=== PATIENT | female | born 1940 | race Caucasian/White ===

== ENCOUNTER 2020-09-13 08:57 | Outpatient (REF) | payer MEDICARE, SELFPAY ==
--- NOTE | 2020-09-13 11:14 | MHC.AU.ANO ---
Adult Audiological Evaluation Date of Visit: 09/13/20 Vocational Rehabilitation Technician Used: Not Applicable Reason for Appointment: Audiologic evaluation due to decreased hearing ability, right ear greater than left. Although Kamini has a history of accumulating cerumen, over the past 6 months or so, the trouble hearing, particularly in the right ear has increased Does patient feel they have a hearing loss?: Yes If Yes, Which Ear?: Right Ear Has hearing been tested previously?: No Hearing Handicap Inventory: HHIE SCORE: 4 Based on HHIE score, patient has: No perceived hearing handicap Ear History: History of Ear Wax Buildup: Both Ears Ear used on the phone: Right Ear History of occupational noise exposure?: No History: History: No Medical History: Medical History: Headache, Measles, Migraines, Scarlet Fever, Tobacco Use Medication List: Omeprazole Otoscopy: Right Ear: Clear following cerumen removal prior to testing today Left Ear: Clear following cerumen removal prior to testing today Tympanometry: Tympanometry performed due to: To assess integrity of the middle ear system Right Ear: Normal Middle Ear System (Type A) Left Ear: Normal Middle Ear System (Type A) Otoacoustic Emissions Right Ear Results: Not performed at today's visit. Left Ear Results: Not performed at today's visit. Hearing Evaluation: Transducer(s) Used: Insert Earphones Bone Conduction Method: Conventional Audiometry Stimuli Used: Pure Tones Right Ear: Description of Hearing: Normal hearing thresholds at 250-1000 Hz dropping to a moderately-severe high frequency sensorineural hearing loss Left Ear: Description of Hearing: Normal hearing thresholds at 250-1000 Hz dropping to a moderately high frequency sensorineural hearing loss Speech Recognition Threshold (SRT): Method Used: Monitored Live Voice Stimuli Used: Spondee Words Right Ear: 30 dB HL Left Ear: 15 dB HL Word Discrimination: Method: Recorded Lists Word Lists Used: NU-6 Right Ear: 72% at 70 dB HL Left Ear: 92% at 60 dB HL Interpretation of Results: Kamini reported following cerumen removal today she was hearing better; however, the right ear continued to feel blocked/full. The asymmetric sensorineural hearing loss is likely to contribute to the blocked ear sensation. This hearing loss will also cause speech to sound more muffled with decreased speech understanding, left ear more than left. Due to the asymmetric sensorineural hearing loss, advise medical consultation and further investigation of the loss with an Production Support Manager. Recommendations: Referral to Ear, Nose, and Throat is recommended due to the asymmetric hearing loss. Trial with amplification is recommended. Patient does not feel they are ready for amplification at this time. Audiological re-evaluation in one year. Will send a reminder card Diagnosis: Primary Diagnosis: H90.3 Bilateral Sensorineural Hearing Loss Services Performed: Comprehensive Audiological Evaluation (CPT 66826) Tympanometry (CPT 53037) Signature: Provider: Benji Ceja, CCC-A
== END 2020-09-13 08:58 | disposition home or self-care (01) ==
LOC: HO.SH 08:57
PROVIDERS: Visit Provider Internal Medicine
DX: H91.90 Unspecified hearing loss, unspecified ear (principal)
CPT/HCPCS: 92557; 92567

== ENCOUNTER 2020-09-13 09:36 | Outpatient (REF) | payer SELFPAY | END 2020-09-13 09:37 | disposition home or self-care (01) | LOC: HO.HAP 09:36 | PROVIDERS: Visit Provider Internal Medicine | DX: H61.23 Impacted cerumen, bilateral (principal) | CPT/HCPCS: 92700 ==

== ENCOUNTER 2021-09-22 11:11 | Outpatient (REF) | payer MEDICARE, SELFPAY ==
[2021-09-22 11:22] LABS: MANUAL DIFF FLAG NO
[2021-09-22 12:19] LABS: Basophils Absolute Auto 0.1 X10*3/uL (0.0-0.2); Basophils Percent Auto 0.8 % (0-2); Eosinophils Absolute Auto 0.1 X10*3/uL (0.0-0.4); Eosinophils Percent Auto 1.5 % (0-4); Hematocrit 44.7 % (37.0-47.0); Hemoglobin 15.3 g/dl (12.0-16.0); Imm Gran Abs Auto 0.02 X10*3/uL (0.00-0.03); Imm Gran Pct Auto 0.2 % (0.0-0.4); Lymphocytes Absolute Auto 1.6 X10*3/uL (1.2-4.9); Lymphocytes Percent Auto 18.1 % (20-40); Mean Corpuscular HGB Conc 34.2 g/dl (31.0-35.0); Mean Corpuscular Hemoglobin 32.8 pg (27.0-33.0); Mean Corpuscular Volume 95.7 fL (80.0-98.0); Monocytes Absolute Auto 0.7 X10*3/uL (0.1-1.2); Monocytes Percent Auto 8.4 % (2-11); Neutrophils Absolute Auto 6.1 x10*3/uL (2.0-8.3); Platelet Count 267 X10*3/uL (160-400); Red Blood Count 4.67 X10*6/uL (4.20-5.50); Red Cell Distribution Width 12.3 % (11.0-16.0); White Blood Count 8.6 X10*3/uL (4.8-10.8)
[2021-09-22 13:17] LABS: Alanine Aminotransferase 16 U/L (0-31); Albumin Level 4.3 g/dL (3.5-5.0); Alkaline Phosphatase 80 U/L (39-117); Anion Gap 13 (12-20); Aspartate Amino Transferase 19 U/L (5-31); Bilirubin Total 0.9 mg/dL (0.0-1.0); Blood Urea Nitrogen 9 mg/dL (9-16); Calcium 9.6 mg/dL (8.4-10.2); Carbon Dioxide 29 mmol/L (22-29); Chloride 104 mmol/L (96-108); Cholesterol 230 mg/dL; Estimated Glomerular Filt Rate > 60; Glucose Fasting 103 mg/dL (60-99); HDL Cholesterol 63 mg/dL; LDL Cholesterol Calculated 146 mg/dl; Potassium 4.6 mmol/L (3.3-5.1); Sodium 141 mmol/L (135-145); Total Protein 7.3 g/dL (6.5-8.0); Triglycerides 108 mg/dL
== END 2021-09-22 11:12 | disposition home or self-care (01) ==
LOC: HO.LAB 11:11
PROVIDERS: PCP Internal Medicine; Visit Provider Internal Medicine
DX: Z00.00 Encounter for general adult medical examination without abnormal findings (principal); Z13.0 Encounter for screening for diseases of the blood and blood-forming organs and certain disorders involving the immune mechanism; E78.5 Hyperlipidemia, unspecified
CPT/HCPCS: 36415; 80053; 80061; 84443; 85025

== ENCOUNTER 2021-11-15 10:19 | Outpatient (REF) | payer MEDICARE, SELFPAY ==
--- NOTE | 2021-11-16 11:32 | MHC.AU.ANR ---
Adult Audiological Evaluation Date of Visit: 11/15/21 Reason for Appointment: Patient arrives to determine if there has been a change in hearing. At her initial visit on 09/13/2020, she was found to have asymmetrical hearing loss (right ear worse). Her right ear presented with normal sloping to moderately-severe sensorineural hearing loss, and her left ear presented with normal to moderate sensorineural hearing loss. Patient did not feel amplification was needed at that time. Referral to otolaryngology was recommended to address the asymmetry. Patient reports that she has not seen otolaryngology since the last appointment. She does not feel there have been any significant changes in hearing since her last visit. Ear History: Recent Ear Pain: None Reported Recent Ear Infections: None Reported History of Ear Wax Buildup: Both Ears History of occupational noise exposure?: No Medical History: Medical History: Headache, Measles, Migraines, Scarlet Fever, Tobacco Use Otoscopy: Right Ear: Partially occluded with cerumen. Tympanic membrane still visible. Left Ear: Partially occluded with cerumen. Tympanic membrane still visible. Tympanometry: Tympanometry performed due to: To assess integrity of the middle ear system Right Ear: Normal Middle Ear System (Type A) Left Ear: Normal Middle Ear System (Type A) Hearing Evaluation: Transducer(s) Used: Circumaural Headphones Method: Conventional Audiometry Stimuli Used: Pure Tones Right Ear: Description of Hearing: Normal from 250-1000 Hz, sloping to moderately-severe sensorineural hearing loss Left Ear: Description of Hearing: Normal from 250-1000 Hz, sloping to moderately-severe sensorineural hearing loss Speech Recognition Threshold (SRT): Method Used: Recorded Lists Stimuli Used: Spondee Words Right Ear: 20 dBHL Left Ear: 20 dBHL Word Discrimination: Method: Recorded Lists Word Lists Used: W-22 Right Ear: 96% at 60 dBHL Left Ear: 96% at 60 dBHL Most Comfortable Level (MCL): Right Ear: 60 dBHL Left Ear: 60 dBHL Comparison: Compared to the most recent evaluation: High frequency thresholds in the right ear slightly improved, while thresholds in the left ear slightly decreased. There is still asymmetry, but the gap is not as large was it was previously. Recommendations: Audiological re-evaluation in one year. Patient does not feel hearing aids are needed at this time. A referral to Ear, Nose, and Throat may still be warranted to address the asymmetry. Use of wax softening drops, such as EarWaxMD or Debrox, may help manage cerumen build-up. Diagnosis: Primary Diagnosis: H90.3 Bilateral Sensorineural Hearing Loss Signature: Provider: Benji Buck, CCC-A
== END 2021-11-15 10:20 | disposition home or self-care (01) ==
LOC: HO.SH 10:19
PROVIDERS: Visit Provider Internal Medicine
DX: Z01.118 Encounter for examination of ears and hearing with other abnormal findings (principal); H90.3 Sensorineural hearing loss, bilateral
CPT/HCPCS: 92557; 92567

== ENCOUNTER 2022-07-02 09:34 | Outpatient (REF) | payer MEDICARE, SELFPAY ==
--- NOTE | ~2022-07-02 | XR_ITS ---
EXAMINATION: XR SHOULDER, LEFT CLINICAL INFORMATION: Pain COMPARISON: None available. TECHNIQUE: AP external rotation, Grashey, scapular Y, and axillary views of the left shoulder. FINDINGS: There is loss of glenohumeral and AC joint space with inferior spurring glenohumeral joint. No visible loose bodies are bony erosive changes seen. No fracture or dislocation. There is soft tissue calcification lateral to the rotator cuff likely calcific bursitis. XR/XR shoulder LT min 2V IMPRESSION: 1. 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 2. Soft tissue calcification lateral to the rotator cuff likely calcific bursitis.
== END 2022-07-02 09:35 | disposition home or self-care (01) ==
LOC: HO.XRAY 09:34
PROVIDERS: PCP Internal Medicine; Visit Provider Internal Medicine
DX: M25.512 Pain in left shoulder (principal)
CPT/HCPCS: 73030

== ENCOUNTER 2022-11-15 09:20 | Outpatient (AMB) | payer MEDICARE, SELFPAY ==
[2022-11-15 09:27] VITALS: BP 108/70; PULSE 85; O2SAT 98; BMI 22.0
--- NOTE | 2022-11-15 09:27 | MHC.PC.OV ---
Vital Signs 11/15/22 09:27 Height 5 ft 1.5 in Weight 118 lb 2 oz BMI 22.0 BP 108/70 Blood Pressure Location Lt brachial Position Sitting Pulse 85 Pulse Source Pulse Oximeter Pulse Oximetry (%) 98 Oxygen Delivery Method Room Air Intake Visit Reasons: 6mth f/u Tester Waste Disposal Leakage Required: No Accompanied by: Self / Same As Patient Allergies No Known Allergies [No Known Allergies*] Allergy (Verified 11/15/22 09:28) Medication List - Last Reconciled 11/15/22 by Michele Wright MD cetirizine (24Hour Allergy) 10 mg PO DAILY PRN naproxen (Naprosyn) 500 mg PO BID PRN omeprazole 20 mg PO DAILY Tobacco use date assessed: 11/15/22 Fall risk assessment: No Falls in past year Last assessed Fall Risk: 11/15/22 Dental Screening Dental Screen Date: 11/15/22 Did you have a dental visit in the last 12 months?: Yes Did you have a dental problem in the last 6 months where you did not have access to dental care?: No Was dental information given to patient?: Patient has dentist HPI 6mth f/u HPI Details gerd on rx; doing well [facility] Medical History (Updated 09/14/21 @ 10:43 by Michele Wright MD) Chronic GERD Surgical History History of appendectomy Family History Father No problems noted. Mother No problems noted. Social History Housing: House Alcohol intake: current Alcohol intake frequency: a few times a week Patient Tobacco Use Status: Former Tobacco user Tobacco use type: Cigarette e-Cigarette/Vaping Use: Never Used Second Hand Smoke Exposure: No service: No Current occupational status: retired Cognitive needs: No Hearing needs: No Vision needs: No Questionnaire PHQ-9 Over the last 2 weeks, how often have you been bothered by any of the following problems? 1. Little interest or pleasure in doing things: not at all 2. Feeling down, depressed, or hopeless: not at all 3. Trouble falling or staying asleep, or sleeping too much: not at all 4. Feeling tired or having little energy: not at all 5. Poor appetite or overeating: not at all 6. Feeling bad about yourself - or that you are a failure or have let yourself or your family down: not at all 7. Trouble concentrating on things, such as reading the newspaper or watching television: not at all 8. Moving or speaking so slowly that other people could have noticed. Or the opposite - being so fidgety or restless that you have been moving around a lot more than usual: not at all 9. Thoughts that you would be better off or of hurting yourself in some way: not at all Total score: 0 Depression Screening Interpretation: Negative Source: Developed by Drs. Bandar Banks, Mary Grace Cervantes, Gene Oakley and colleagues, with an educational italo from [employer]. Thrive Questionnaire Date Thrive assessed: 11/15/22 I am a: Patient What is your living situation today?: I have a steady place to live Within the past 12 months, did the food you bought not last and you didn't have the money to get more?: Never true Within the past 12 months, did you worry whether your food would run out before you got money to buy more?: Never true Do you have trouble paying for medicines?: No Do you have trouble getting transportation to medical appointments?: No Do you have trouble paying your heating and electricity bill?: No Do you have trouble taking care of your child, family member or friend?: No Do you have trouble with day-to-day activities such as bathing, preparing meals, shopping, managing finances, etc.?: No Are you currently unemployed and looking for a job?: No Are you interested in more education?: No Please select the resources that you would like help with: None Currently or been in a relationship where the following occur: no concerns reported AUDIT C Alcohol Use Questionnaire (AUDIT-C) 1. How often do you have a drink containing alcohol?: 4 or more times a week 2. How many drinks containing alcohol do you have on a typical day when you are drinking?: 1 or 2 3. How often do you have six or more drinks on one occasion?: Never Total Score: 4 Score Reviewed/Action Taken: Yes JUSTUS-7 AMB Questionnaire JUSTUS-7 Date JUSTUS - 7 assessed: 11/15/22 Feeling nervous, anxious, or on edge: 0 = Not at all Not being able to stop or control worryin = Not at all Worrying too much about different things: 0 = Not at all Trouble relaxin = Not at all Being so restless that it is hard to sit still: 0 = Not at all Becoming easily annoyed or irritable: 0 = Not at all Feeling afraid as if something awful might happen: 0 = Not at all Total JUSTUS-7 score (0-4 normal; 5-9 mild; 10-14 moderate; 15-21 severe): 0 Source: Developed by Drs. Bandar Banks, Mary Grace Cervantes, Gene Oakley and colleagues, with an educational italo from [employer]. Review of Systems Const Denies chills, Denies headache(s) and Denies weight loss ENT Denies headache(s) Card Denies chest pain, Denies syncope, Denies irregular heart rhythm and Denies dyspnea Resp Denies chest congestion, Denies cough and Denies dyspnea GI Denies abdominal pain, Denies change in stool character, Denies nausea and Denies vomiting Musc Denies deformity and Denies joint swelling Neuro Denies syncope and Denies headache(s) Physical exam (Primary Care) Vital Signs: Last Vital Signs Pulse 85 11/15/22 09:27 BP 108/70 11/15/22 09:27 Pulse Ox 98 11/15/22 09:27 Oxygen Delivery Method Room Air 11/15/22 09:27 BMI result Body Mass Index 22.0 Tobacco/Smoking Status: Tobacco use Status Tobacco use date assessed 11/15/22 11/15/22 09:29 Patient Tobacco Use Status Former Tobacco user 11/15/22 09:29 Tobacco use type Cigarette 11/15/22 09:29 e-Cigarette/Vaping Use Never Used 11/15/22 09:29 PHQ-9: PHQ-9 Score PHQ-9: Total score 0 11/15/22 09:29 Depression Screening Interpretation: Negative Thrive Assessment: Date of Thrive Assessment Date Thrive assessed 11/15/22 11/15/22 09:29 Currently or been in a relationship where the following occur: no concerns reported Const General: cooperative, comfortable and no acute distress Resp Effort & Inspection: normal respiratory effort Auscultation: clear to auscultation bilaterally Percussion: percussion normal Cardio Jugular venous distension: no JVD Rate: regular rate Rhythm: regular rhythm GI Inspection: Yes normal to inspection Assessment and Plan Assessment & Plan (1) Chronic GERD: Code(s): K21.9 - Gastro-esophageal reflux disease without esophagitis Plan: stable; same rx Coding Level of Care Code Est Pt Level 3 (52166) Diagnoses Chronic GERD K21.9
== END 2022-11-15 09:55 | disposition home or self-care (01) ==
PROVIDERS: Visit Provider Internal Medicine
DX: K21.9 Gastro-esophageal reflux disease without esophagitis (principal)
CPT/HCPCS: 99213

== ENCOUNTER 2023-02-01 09:20 | Outpatient (AMB) | payer MEDICARE, SELFPAY ==
[2023-02-01 09:21] VITALS: BP 116/72; PULSE 87; O2SAT 98; BMI 22.3
--- NOTE | 2023-02-01 09:21 | A.OFFPC_ITS ---
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 Cab Required: No Cage Maker Machine: Present Allergies No Known Allergies [No Known Allergies*] Allergy (Verified 02/01/23 09:21) Medication List - Last Reconciled 02/01/23 by Michele Wright MD cetirizine (24Hour Allergy) 10 mg PO DAILY PRN naproxen (Naprosyn) 500 mg PO BID PRN omeprazole 20 mg PO DAILY Tobacco use date assessed: 11/15/22 Fall risk assessment: No Falls in past year Last assessed Fall Risk: 02/01/23 Dental Screening Dental Screen Date: 02/01/23 Did you have a dental visit in the last 12 months?: Yes Did you have a dental problem in the last 6 months where you did not have access to dental care?: No Was dental information given to patient?: Patient has dentist HPI Discuss Memory HPI Details notices a decline in memory the past year [facility] Medical History Chronic GERD Surgical History History of appendectomy Family History Father No problems noted. Mother No problems noted. Social History Housing: House Alcohol intake: current Alcohol intake frequency: a few times a week Patient Tobacco Use Status: Former Tobacco user Tobacco use type: Cigarette e-Cigarette/Vaping Use: Never Used Second Hand Smoke Exposure: No service: No Current occupational status: retired Cognitive needs: No Hearing needs: No Vision needs: Yes Questionnaire PHQ-9 Over the last 2 weeks, how often have you been bothered by any of the following problems? 1. Little interest or pleasure in doing things: not at all 2. Feeling down, depressed, or hopeless: not at all 3. Trouble falling or staying asleep, or sleeping too much: not at all 4. Feeling tired or having little energy: not at all 5. Poor appetite or overeating: not at all 6. Feeling bad about yourself - or that you are a failure or have let yourself or your family down: not at all 7. Trouble concentrating on things, such as reading the newspaper or watching television: not at all 8. Moving or speaking so slowly that other people could have noticed. Or the opposite - being so fidgety or restless that you have been moving around a lot more than usual: not at all 9. Thoughts that you would be better off or of hurting yourself in some way: not at all Total score: 0 Depression Screening Interpretation: Negative Depression Screening Done: Yes Source: Developed by Drs. Bandar Banks, Gene Sherman and colleagues, with an educational italo from [facility]. Thrive Questionnaire Date Thrive assessed: 11/15/22 AUDIT C Alcohol Use Questionnaire (AUDIT-C) 1. How often do you have a drink containing alcohol?: 4 or more times a week 2. How many drinks containing alcohol do you have on a typical day when you are drinking?: 1 or 2 3. How often do you have six or more drinks on one occasion?: Never Total Score: 4 Score Reviewed/Action Taken: Yes JUSTUS-7 AMB Questionnaire JUSTUS-7 Date JUSTUS - 7 assessed: 11/15/22 Source: Developed by Drs. Bandar Banks, Gene Sherman and colleagues, with an educational italo from [facility]. Review of Systems Const Denies chills, Denies headache(s) and Denies weight loss ENT Denies headache(s) Card Denies chest pain, Denies syncope, Denies irregular heart rhythm and Denies dys pnea Resp Denies chest congestion, Denies cough and Denies dyspnea GI Denies abdominal pain, Denies change in stool character, Denies nausea and Denie s vomiting Musc Denies deformity and Denies joint swelling Neuro Denies syncope and Denies headache(s) Physical exam (Primary Care) Vital Signs: Last Vital Signs Pulse 87 02/01/23 09:21 BP 116/72 02/01/23 09:21 Pulse Ox 98 02/01/23 09:21 Oxygen Delivery Method Room Air 02/01/23 09:21 BMI result Body Mass Index 22.3 Tobacco/Smoking Status: Tobacco use Status Tobacco use date assessed 11/15/22 02/01/23 09:26 Patient Tobacco Use Status Former Tobacco user 02/01/23 09:26 Tobacco use type Cigarette 02/01/23 09:26 e-Cigarette/Vaping Use Never Used 02/01/23 09:26 PHQ-9: PHQ-9 Score PHQ-9: Total score 0 02/01/23 09:38 Depression Screening Interpretation: Negative Thrive Assessment: Date of Thrive Assessment Date Thrive assessed 11/15/22 02/01/23 09:26 Const General: cooperative, comfortable, no acute distress and alert Neck Neck: Yes no lymphadenopathy Thyroid: Thyroid normal Resp Effort & Inspection: normal respiratory effort Auscultation: clear to auscultation bilaterally Percussion: percussion normal Cardio Jugular venous distension: no JVD Palpation: normal PMI Rate: regular rate Rhythm: regular rhythm Heart sounds: S1 normal heart sound present and S2 normal heart sound present GI Inspection: Yes normal to inspection Palpation (GI): No hepatosplenomegaly present Skin General skin exam: no rashes or lesions noted Extrem General: Yes no clubbing, cyanosis or edema Assessment and Plan Assessment & Plan (1) Cognitive decline: Code(s): R41.89 - Other symptoms and signs involving cognitive functions and awareness Plan: labs and ct ordered Orders: Orders Vitamin B12 Today R41.89 - Other symptoms and signs involving cognitive functions and awareness Erythrocyte Sedimentation Rate Today R41.89 - Other symptoms and signs involving cognitive functions and awareness CT head/brain wo IV con Today R41.89 - Other symptoms and signs involving cognitive functions and awareness Complete Blood Count Auto Diff Today D64.9 - Anemia, unspecified Basic Metabolic Panel Today R41.89 - Other symptoms and signs involving cognitive functions and awareness Coding Level of Care Code Est Pt Level 3 (67653) Diagnoses Cognitive decline R41.89
== END 2023-02-01 09:40 | disposition home or self-care (01) ==
PROVIDERS: PCP Internal Medicine; Visit Provider Internal Medicine
DX: R41.89 Other symptoms and signs involving cognitive functions and awareness (principal)
CPT/HCPCS: 99213

== ENCOUNTER 2023-02-01 09:49 | Outpatient (REF) | payer MEDICARE, SELFPAY ==
[2023-02-01 10:01] LABS: MANUAL DIFF FLAG NO
[2023-02-01 10:56] LABS: Basophils Absolute Auto 0.1 X10*3/uL (0.0-0.2); Basophils Percent Auto 1.1 % (0-2); Eosinophils Absolute Auto 0.2 X10*3/uL (0.0-0.4); Eosinophils Percent Auto 3.2 % (0-4); Hematocrit 42.5 % (37.0-47.0); Hemoglobin 14.6 g/dl (12.0-16.0); Imm Gran Abs Auto 0.02 X10*3/uL (0.00-0.03); Imm Gran Pct Auto 0.3 % (0.0-0.4); Lymphocytes Absolute Auto 1.7 X10*3/uL (1.2-4.9); Lymphocytes Percent Auto 23.6 % (20-40); Mean Corpuscular HGB Conc 34.4 g/dl (31.0-35.0); Mean Corpuscular Hemoglobin 31.9 pg (27.0-33.0); Mean Platelet Volume 10.6 fL (9.4-12.3); Monocytes Absolute Auto 0.7 X10*3/uL (0.1-1.2); Monocytes Percent Auto 9.1 % (2-11); Neutrophils Absolute Auto 4.5 x10*3/uL (2.0-8.3); Neutrophils Percent Auto 62.7 % (45-73); Platelet Count 283 X10*3/uL (160-400); Red Blood Count 4.57 X10*6/uL (4.20-5.50); Red Cell Distribution Width 12.1 % (11.0-16.0); White Blood Count 7.2 X10*3/uL (4.8-10.8)
[2023-02-01 11:37] LABS: Erythrocyte Sedimentation Rate 7 MM/HR (0-20)
[2023-02-01 11:39] LABS: Anion Gap 15 (12-20); Blood Urea Nitrogen 10 mg/dL (9-16); Calcium 9.6 mg/dL (8.4-10.2); Carbon Dioxide 25 mmol/L (22-29); Chloride 105 mmol/L (96-108); Estimated Glomerular Filt Rate > 60; Glucose Random 101 mg/dL (60-115); Potassium 4.1 mmol/L (3.3-5.1); Sodium 141 mmol/L (135-145)
[2023-02-01 11:59] LABS: Vitamin B12 395 pg/mL (200-900)
== END 2023-02-01 09:50 | disposition home or self-care (01) ==
LOC: HO.LAB 09:49
PROVIDERS: PCP Internal Medicine; Visit Provider Internal Medicine
DX: R41.89 Other symptoms and signs involving cognitive functions and awareness (principal); D64.9 Anemia, unspecified
CPT/HCPCS: 36415; 80048; 82607; 85025; 85652

== ENCOUNTER 2023-02-12 07:46 | Outpatient (REF) | payer MEDICARE, SELFPAY ==
--- NOTE | ~2023-02-12 | CT_ITS ---
EXAMINATION: CT HEAD WITHOUT CONTRAST CLINICAL INFORMATION: 82-year-old with other signs and symptoms involving cognitive functions and awareness. COMPARISON: None available. TECHNIQUE: Contiguous axial imaging was performed from the skull base to vertex without intravenous administration of contrast. This CT examination was performed using dose optimization techniques as appropriate, variously including the following: *Automated exposure control *Adjustment of mA and/or kV according to patient size (this includes techniques or standardized protocols for targeted exams where dose is matched to indication/reason for exam; i.e. extremities or head) *Use of iterative reconstruction technique DLP: 657 mGy-cm FINDINGS: Brain Volume: Moderate diffuse generalized brain parenchymal volume loss is noted. There is prominence of the cerebrospinal fluid spaces overlying the cervical convexities bilaterally as well likely reflecting relatively increased intracranial volume for the patient's age. Structural: No malformations. Brain and Meninges: Scattered patchy zones of hypodensity are noted within the subcortical white matter of both cerebral hemispheres which are nonspecific but likely reflect chronic ischemic microangiopathy in a patient of this age. Small zones of hypodensity are seen in the john which are nonspecific but could reflect chronic ischemic microangiopathy. Cannot exclude small age-indeterminate infarcts. 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 No intercranial hemorrhage, extra-axial fluid collection acute territorial infarct, space-occupying process or mass effect. Ganglionic structures appear grossly intact. Mural calcifications of both carotid siphons are noted with minimal calcified plaque of the V4 segments of both vertebral arteries. Ventricles and Subarachnoid Spaces: The ventricular system and subarachnoid spaces are approximately proportional to the degree of parenchymal volume loss, without hydrocephalus. Orbital Structures: Bilateral lens replacements are noted. Otherwise, grossly unremarkable within the limitations of the study. Osseous Structures, Sinuses/Mastoids, Extracranial Soft Tissues: The bony structures are intact. The mastoids and middle ear cavities are unopacified. There is minor mucosal thickening in the ethmoid complex and right maxillary sinus. Nasal septal deviation to the right. Visualized extracranial soft tissue structures are unremarkable. CT/CT head/brain wo IV con IMPRESSION: 1. No acute territorial infarct. No evidence for mass effect, hemorrhage, extra-axial fluid collection, space-occupying process or mass effect. 2. 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 Cannot exclude small age-indeterminate infarcts in the john. 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 3. Moderate generalized brain parenchymal volume loss with prominence of the cerebrospinal fluid spaces overlying the cervical convexities bilaterally. 4. Minor mucosal thickening in the ethmoid complex and right maxillary sinus.
== END 2023-02-12 07:47 | disposition home or self-care (01) ==
LOC: HO.CT 07:46
PROVIDERS: PCP Internal Medicine; Visit Provider Internal Medicine
DX: R41.89 Other symptoms and signs involving cognitive functions and awareness (principal)
CPT/HCPCS: 70450

== ENCOUNTER 2023-02-22 09:28 | Outpatient (AMB) | payer MEDICARE, SELFPAY ==
[2023-02-22 09:31] VITALS: BP 118/70; PULSE 80; O2SAT 97; BMI 22.3
--- NOTE | 2023-02-22 09:31 | MHC.PC.OV ---
Vital Signs 02/22/23 09:31 Height 5 ft 1.5 in Weight 120 lb BMI 22.3 BP 118/70 Blood Pressure Location Lt brachial Position Sitting Pulse 80 Pulse Source Pulse Oximeter Pulse Oximetry (%) 97 Oxygen Delivery Method Room Air Intake Visit Reasons: F/U CT & Lab Results First Breaker Feeder: Not Required per policy Accompanied by: Self / Same As Patient Allergies cat dander Allergy (Mild, Verified 02/22/23 09:34) Unknown Medication List - Last Reconciled 02/22/23 by Michele Wright MD cetirizine (24Hour Allergy) 10 mg PO DAILY PRN omeprazole 20 mg PO DAILY Tobacco use date assessed: 11/15/22 Fall risk assessment: No Falls in past year Last assessed Fall Risk: 02/22/23 Dental Screening Dental Screen Date: 02/22/23 Did you have a dental visit in the last 12 months?: Yes Did you have a dental problem in the last 6 months where you did not have access to dental care?: No Was dental information given to patient?: Patient has dentist HPI F/U CT & Lab Results HPI Details has mild cognitive decline; ct showed age related atrophy and labs fine; actually quite active physically and mentally doing puzzles, etc PFSH Medical History Chronic GERD Surgical History History of appendectomy Family History Father No problems noted. Mother No problems noted. Social History Housing: House Alcohol intake: current Alcohol intake frequency: a few times a week Patient Tobacco Use Status: Former Tobacco user Tobacco use type: Cigarette e-Cigarette/Vaping Use: Never Used Second Hand Smoke Exposure: No service: No Current occupational status: retired Cognitive needs: No Hearing needs: No Vision needs: Yes Questionnaire PHQ-9 Over the last 2 weeks, how often have you been bothered by any of the following problems? 1. Little interest or pleasure in doing things: not at all 2. Feeling down, depressed, or hopeless: not at all 3. Trouble falling or staying asleep, or sleeping too much: not at all 4. Feeling tired or having little energy: not at all 5. Poor appetite or overeating: not at all 6. Feeling bad about yourself - or that you are a failure or have let yourself or your family down: not at all 7. Trouble concentrating on things, such as reading the newspaper or watching television: not at all 8. Moving or speaking so slowly that other people could have noticed. Or the opposite - being so fidgety or restless that you have been moving around a lot more than usual: not at all 9. Thoughts that you would be better off or of hurting yourself in some way: not at all Total score: 0 Depression Screening Interpretation: Negative Depression Screening Done: Yes Source: Developed by Drs. Bandar Banks, Mary Grace Cervantes, Gene Oakley and colleagues, with an educational italo from [employer]. Thrive Questionnaire Date Thrive assessed: 11/15/22 AUDIT C Alcohol Use Questionnaire (AUDIT-C) 1. How often do you have a drink containing alcohol?: 4 or more times a week 2. How many drinks containing alcohol do you have on a typical day when you are drinking?: 1 or 2 3. How often do you have six or more drinks on one occasion?: Never Total Score: 4 Score Reviewed/Action Taken: Yes JUSTUS-7 AMB Questionnaire JUSTUS-7 Date JUSTUS - 7 assessed: 11/15/22 Source: Developed by Drs. Bandar Banks, Mary Grace Cervantes, Geen Oakley and colleagues, with an educational italo from [employer]. Review of Systems Const Denies chills, Denies headache(s) and Denies weight loss ENT Denies headache(s) Card Denies chest pain, Denies syncope, Denies irregular heart rhythm and Denies dyspnea Resp Denies chest congestion, Denies cough and Denies dyspnea GI Denies abdominal pain, Denies change in stool character, Denies nausea and Denies vomiting Musc Denies deformity and Denies joint swelling Neuro Denies syncope and Denies headache(s) Physical exam (Primary Care) Vital Signs: Last Vital Signs Pulse 80 02/22/23 09:31 BP 118/70 02/22/23 09:31 Pulse Ox 97 02/22/23 09:31 Oxygen Delivery Method Room Air 02/22/23 09:31 BMI result Body Mass Index 22.3 Tobacco/Smoking Status: Tobacco use Status Tobacco use date assessed 11/15/22 02/22/23 09:37 Patient Tobacco Use Status Former Tobacco user 02/22/23 09:37 Tobacco use type Cigarette 02/22/23 09:37 e-Cigarette/Vaping Use Never Used 02/22/23 09:37 PHQ-9: PHQ-9 Score PHQ-9: Total score 0 02/22/23 09:37 Depression Screening Interpretation: Negative Thrive Assessment: Date of Thrive Assessment Date Thrive assessed 11/15/22 02/22/23 09:37 Const General: cooperative, comfortable, no acute distress and alert Neck Neck: Yes no lymphadenopathy Thyroid: Thyroid normal Resp Effort & Inspection: normal respiratory effort Auscultation: clear to auscultation bilaterally Percussion: percussion normal Cardio Jugular venous distension: no JVD Palpation: normal PMI Rate: regular rate Rhythm: regular rhythm Heart sounds: S1 normal heart sound present and S2 normal heart sound present GI Inspection: Yes normal to inspection Palpation (GI): No hepatosplenomegaly present Skin General skin exam: no rashes or lesions noted Extrem General: Yes no clubbing, cyanosis or edema Assessment and Plan Assessment & Plan (1) Cognitive decline: Code(s): R41.89 - Other symptoms and signs involving cognitive functions and awareness Plan: mild; no further rx needed Coding Level of Care Code Est Pt Level 3 (55552) Diagnoses Cognitive decline R41.89
== END 2023-02-22 09:48 | disposition home or self-care (01) ==
PROVIDERS: PCP Internal Medicine; Visit Provider Internal Medicine
DX: R41.89 Other symptoms and signs involving cognitive functions and awareness (principal)
CPT/HCPCS: 99213

== ENCOUNTER 2023-05-20 08:18 | Outpatient (AMB) | payer MEDICARE, SELFPAY ==
--- NOTE | 2023-05-20 08:41 | MHC.PC.OV ---
Vital Signs 05/20/23 08:42 Height 5 ft 1.5 in Weight 121 lb BMI 22.5 BP 122/70 Blood Pressure Location Lt brachial Position Sitting Pulse 85 Pulse Source Pulse Oximeter Pulse Oximetry (%) 96 Oxygen Delivery Method Room Air Intake Visit Reasons: 6mth f/u Allergies cat dander Allergy (Mild, Verified 05/20/23 08:42) Unknown Tobacco use date assessed: 05/20/23 Fall risk assessment: No Falls in past year Last assessed Fall Risk: 05/20/23 Dental Screening Dental Screen Date: 05/20/23 Did you have a dental visit in the last 12 months?: Yes Did you have a dental problem in the last 6 months where you did not have access to dental care?: No Was dental information given to patient?: Patient has dentist HPI 6mth f/u HPI Details gerd on rx; doing well PFSH Medical History Chronic GERD Surgical History History of appendectomy Family History Father No problems noted. Mother No problems noted. Social History Housing: House Alcohol intake: current Alcohol intake frequency: a few times a week Patient Tobacco Use Status: Former Tobacco user Tobacco use type: Cigarette e-Cigarette/Vaping Use: Never Used Second Hand Smoke Exposure: No service: No Current occupational status: retired Cognitive needs: No Hearing needs: No Vision needs: Yes Questionnaire PHQ-9 Over the last 2 weeks, how often have you been bothered by any of the following problems? 1. Little interest or pleasure in doing things: not at all 2. Feeling down, depressed, or hopeless: not at all 3. Trouble falling or staying asleep, or sleeping too much: not at all 4. Feeling tired or having little energy: not at all 5. Poor appetite or overeating: not at all 6. Feeling bad about yourself - or that you are a failure or have let yourself or your family down: not at all 7. Trouble concentrating on things, such as reading the newspaper or watching television: not at all 8. Moving or speaking so slowly that other people could have noticed. Or the opposite - being so fidgety or restless that you have been moving around a lot more than usual: not at all 9. Thoughts that you would be better off or of hurting yourself in some way: not at all Total score: 0 Depression Screening Interpretation: Negative Depression Screening Done: Yes Source: Developed by Drs. Bandar Banks, Mary Grace Cervantes, Gene Oakley and colleagues, with an educational italo from [employer]. Thrive Questionnaire Date Thrive assessed: 05/20/23 I am a: Patient What is your living situation today?: I have a steady place to live Within the past 12 months, did the food you bought not last and you didn't have the money to get more?: Never true Within the past 12 months, did you worry whether your food would run out before you got money to buy more?: Never true Do you have trouble paying for medicines?: No Do you have trouble getting transportation to medical appointments?: No Do you have trouble paying your heating and electricity bill?: No Do you have trouble taking care of your child, family member or friend?: No Do you have trouble with day-to-day activities such as bathing, preparing meals, shopping, managing finances, etc.?: No Are you currently unemployed and looking for a job?: No Are you interested in more education?: No THRIVE Score: 0 AUDIT C Alcohol Use Questionnaire (AUDIT-C) 1. How often do you have a drink containing alcohol?: 4 or more times a week 2. How many drinks containing alcohol do you have on a typical day when you are drinking?: 1 or 2 3. How often do you have six or more drinks on one occasion?: Never Total Score: 4 Score Reviewed/Action Taken: Yes JUSTUS-7 AMB Questionnaire JUSTUS-7 Date JUSTUS - 7 assessed: 05/20/23 Feeling nervous, anxious, or on edge: 0 = Not at all Not being able to stop or control worryin = Not at all Worrying too much about different things: 0 = Not at all Trouble relaxin = Not at all Being so restless that it is hard to sit still: 0 = Not at all Becoming easily annoyed or irritable: 0 = Not at all Feeling afraid as if something awful might happen: 0 = Not at all Total JUSTUS-7 score (0-4 normal; 5-9 mild; 10-14 moderate; 15-21 severe): 0 Source: Developed by Drs. Bandar Banks, Mary Grace Cervantes, Gene Oakley and colleagues, with an educational italo from [employer]. Review of Systems Const Denies chills, Denies headache(s) and Denies weight loss ENT Denies headache(s) Card Denies chest pain, Denies syncope, Denies irregular heart rhythm and Denies dyspnea Resp Denies chest congestion, Denies cough and Denies dyspnea GI Denies abdominal pain, Denies change in stool character, Denies nausea and Denies vomiting Musc Denies deformity and Denies joint swelling Neuro Denies syncope and Denies headache(s) Physical exam (Primary Care) Vital Signs: Last Vital Signs Pulse 85 05/20/23 08:42 BP 122/70 05/20/23 08:42 Pulse Ox 96 05/20/23 08:42 Oxygen Delivery Method Room Air 05/20/23 08:42 BMI result Body Mass Index 22.5 Tobacco/Smoking Status: Tobacco use Status Tobacco use date assessed 05/20/23 05/20/23 08:46 Patient Tobacco Use Status Former Tobacco user 05/20/23 08:46 Tobacco use type Cigarette 05/20/23 08:46 e-Cigarette/Vaping Use Never Used 05/20/23 08:46 PHQ-9: PHQ-9 Score PHQ-9: Total score 0 05/20/23 08:46 Depression Screening Interpretation: Negative Thrive Assessment: Date of Thrive Assessment Date Thrive assessed 05/20/23 05/20/23 08:46 Const General: cooperative, comfortable, no acute distress and alert Neck Neck: Yes no lymphadenopathy Thyroid: Thyroid normal Resp Effort & Inspection: normal respiratory effort Auscultation: clear to auscultation bilaterally Percussion: percussion normal Cardio Jugular venous distension: no JVD Palpation: normal PMI Rate: regular rate Rhythm: regular rhythm Heart sounds: S1 normal heart sound present and S2 normal heart sound present GI Inspection: Yes normal to inspection Palpation (GI): No hepatosplenomegaly present Skin General skin exam: no rashes or lesions noted Extrem General: Yes no clubbing, cyanosis or edema Assessment and Plan Assessment & Plan (1) Chronic GERD: Code(s): K21.9 - Gastro-esophageal reflux disease without esophagitis Plan: stable; same rx Coding Level of Care Code Est Pt Level 3 (58685) Diagnoses Chronic GERD K21.9
[2023-05-20 08:42] VITALS: BP 122/70; PULSE 85; O2SAT 96; BMI 22.5
== END 2023-05-20 08:57 | disposition home or self-care (01) ==
PROVIDERS: PCP Internal Medicine; Visit Provider Internal Medicine
DX: K21.9 Gastro-esophageal reflux disease without esophagitis (principal)
CPT/HCPCS: 99213

== ENCOUNTER 2023-09-13 11:19 | Outpatient (REF) | payer SELFPAY ==
--- NOTE | 2023-09-13 12:40 | MHC.AU.CER ---
Cerumen Removal- Binaural Date of Visit: 09/13/23 Medical Conditions: Fullness in Ear(s); No Conditions of Concern for Cerumen Removal Medications: No Medications of Concern for Cerumen Removal Procedure: Right Ear: Unusual Findings: Deeply Impacted Cerumen Prior to Removal: Complete Occlusion Outcome of Procedure: Very little to no cerumen was able to be removed; Irritation/Redness Other: Slight abrasion on floor of ear canal Left Ear: Unusual Findings: Deeply Impacted Cerumen Prior to Removal: Complete Occlusion Outcome of Procedure: Very little to no cerumen was able to be removed. Recommendations: Follow-up with ENT for cerumen removal Recommendations (Other): Kamini reported her PCP office does not perform cerumen removal. Diagnosis Code(s): Primary Diagnosis: H61.23 Impacted Cerumen, Bilateral Signature: Provider: Michaela Calloway, [facility]
== END 2023-09-13 11:20 | disposition home or self-care (01) ==
LOC: HO.HAP 11:19
PROVIDERS: Visit Provider Internal Medicine
DX: Z13.89 Encounter for screening for other disorder (principal)

== ENCOUNTER 2023-11-01 11:33 | Outpatient (AMB) | payer MEDICARE, SELFPAY ==
[2023-11-01 11:40] VITALS: BP 110/70; PULSE 60; O2SAT 98; BMI 21.9
--- NOTE | 2023-11-01 11:40 | A.OFFPC_ITS ---
Vital Signs 11/01/23 11:40 Height 5 ft 1.5 in Weight 118 lb BMI 21.9 BP 110/70 Blood Pressure Location Lt brachial Position Sitting Pulse 60 Pulse Source Pulse Oximeter Pulse Oximetry (%) 98 Oxygen Delivery Method Room Air Intake Visit Reasons: muscle pain Allergies cat dander Allergy (Mild, Verified 05/20/23 08:42) Unknown Tobacco use date assessed: 05/20/23 Dental Screening Dental Screen Date: 05/20/23 HPI muscle pain HPI Details right hip pain for a week which has now resolved [facility] Medical History Chronic GERD Surgical History History of appendectomy Family History Father No problems noted. Mother No problems noted. Social History Housing: House Alcohol intake: current Alcohol intake frequency: a few times a week Patient Tobacco Use Status: Former Tobacco user Tobacco use type: Cigarette e-Cigarette/Vaping Use: Never Used Second Hand Smoke Exposure: No service: No Current occupational status: retired Cognitive needs: No Hearing needs: No Vision needs: Yes Questionnaire Thrive Questionnaire Date Thrive assessed: 05/20/23 JUSTUS-7 AMB Questionnaire JUSTUS-7 Date JUSTUS - 7 assessed: 05/20/23 Source: Developed by Drs. Bandar Banks, Mary Grace Cervantes, Gene Oakley and colleagues, with an educational italo from [employer]. Review of Systems Const Denies chills, Denies headache(s) and Denies weight loss ENT Denies headache(s) Card Denies chest pain, Denies syncope, Denies irregular heart rhythm and Denies dyspnea Resp Denies chest congestion, Denies cough and Denies dyspnea GI Denies abdominal pain, Denies change in stool character, Denies nausea and Denies vomiting Musc Denies deformity and Denies joint swelling Neuro Denies syncope and Denies headache(s) Physical exam (Primary Care) Vital Signs: Last Vital Signs Pulse 60 11/01/23 11:40 BP 110/70 11/01/23 11:40 Pulse Ox 98 11/01/23 11:40 Oxygen Delivery Method Room Air 11/01/23 11:40 BMI result Body Mass Index 21.9 Tobacco/Smoking Status: Tobacco use Status Tobacco use date assessed 05/20/23 11/01/23 11:42 Patient Tobacco Use Status Former Tobacco user 11/01/23 11:42 Tobacco use type Cigarette 11/01/23 11:42 e-Cigarette/Vaping Use Never Used 11/01/23 11:42 Thrive Assessment: Date of Thrive Assessment Date Thrive assessed 05/20/23 11/01/23 11:42 Const General: cooperative, comfortable, no acute distress and alert Neck Neck: Yes no lymphadenopathy Thyroid: Thyroid normal Resp Effort & Inspection: normal respiratory effort Auscultation: clear to auscultation bilaterally Percussion: percussion normal Cardio Jugular venous distension: no JVD Palpation: normal PMI Rate: regular rate Rhythm: regular rhythm Heart sounds: S1 normal heart sound present and S2 normal heart sound present GI Inspection: Yes normal to inspection Palpation (GI): No hepatosplenomegaly present Skin General skin exam: no rashes or lesions noted Extrem General: Yes no clubbing, cyanosis or edema Assessment and Plan Assessment & Plan (1) Hip pain: Code(s): M25.559 - Pain in unspecified hip Plan: resolved Coding Level of Care Code Est Pt Level 3 (82616) Diagnoses Hip pain M25.559
== END 2023-11-01 11:48 | disposition home or self-care (01) ==
PROVIDERS: PCP Internal Medicine; Visit Provider Internal Medicine
DX: M25.559 Pain in unspecified hip (principal)
CPT/HCPCS: 99213

== ENCOUNTER 2023-11-18 11:29 | Outpatient (AMB) | payer MEDICARE, SELFPAY ==
[2023-11-18 11:34] VITALS: BP 112/58; PULSE 86; O2SAT 96; BMI 22.3
--- NOTE | 2023-11-18 11:34 | MHC.PC.OV ---
Vital Signs 11/18/23 11:34 Height 5 ft 1 in Weight 118 lb BMI 22.3 BP 112/58 L Blood Pressure Location Lt brachial Position Sitting Pulse 86 Pulse Source Pulse Oximeter Pulse Oximetry (%) 96 Oxygen Delivery Method Room Air Intake Visit Reasons: 6mth f/u Allergies cat dander Allergy (Mild, Verified 11/18/23 11:34) Unknown Medication List - Last Reconciled 11/18/23 by Michele Wirght MD cetirizine (24Hour Allergy) 10 mg PO DAILY PRN omeprazole 20 mg PO DAILY Tobacco use date assessed: 05/20/23 Fall risk assessment: No Falls in past year Last assessed Fall Risk: 11/18/23 Dental Screening Dental Screen Date: 05/20/23 HPI 6mth f/u HPI Details allergic rhinitis on rx; doing well on meds; stable PFSH Medical History Chronic GERD Surgical History History of appendectomy Family History Father No problems noted. Mother No problems noted. Social History Housing: House Alcohol intake: current Alcohol intake frequency: a few times a week Patient Tobacco Use Status: Former Tobacco user Tobacco use type: Cigarette e-Cigarette/Vaping Use: Never Used Second Hand Smoke Exposure: No service: No Current occupational status: retired Cognitive needs: No Hearing needs: No Vision needs: Yes Questionnaire PHQ-9 Over the last 2 weeks, how often have you been bothered by any of the following problems? 1. Little interest or pleasure in doing things: not at all 2. Feeling down, depressed, or hopeless: not at all 3. Trouble falling or staying asleep, or sleeping too much: not at all 4. Feeling tired or having little energy: not at all 5. Poor appetite or overeating: not at all 6. Feeling bad about yourself - or that you are a failure or have let yourself or your family down: not at all 7. Trouble concentrating on things, such as reading the newspaper or watching television: not at all 8. Moving or speaking so slowly that other people could have noticed. Or the opposite - being so fidgety or restless that you have been moving around a lot more than usual: not at all 9. Thoughts that you would be better off or of hurting yourself in some way: not at all Total score: 0 Depression Screening Interpretation: Negative Depression Screening Done: Yes Source: Developed by Drs. Bandar Banks, Mary Grace Cervantes, Gene Oakley and colleagues, with an educational italo from [email or web address]. Thrive Questionnaire Date Thrive assessed: 05/20/23 AUDIT C Alcohol Use Questionnaire (AUDIT-C) 1. How often do you have a drink containing alcohol?: 4 or more times a week 2. How many drinks containing alcohol do you have on a typical day when you are drinking?: 1 or 2 3. How often do you have six or more drinks on one occasion?: Never Total Score: 4 Score Reviewed/Action Taken: Yes JUSTUS-7 AMB Questionnaire JUSTUS-7 Date JUSTUS - 7 assessed: 05/20/23 Source: Developed by Drs. Bandar Banks, Mary Grace Cervantes, Gene Oakley and colleagues, with an educational italo from [email or web address]. Review of Systems Const Denies chills, Denies headache(s) and Denies weight loss ENT Denies headache(s) Card Denies chest pain, Denies syncope, Denies irregular heart rhythm and Denies dyspnea Resp Denies chest congestion, Denies cough and Denies dyspnea GI Denies abdominal pain, Denies change in stool character, Denies nausea and Denies vomiting Musc Denies deformity and Denies joint swelling Neuro Denies syncope and Denies headache(s) Physical exam (Primary Care) Vital Signs: Last Vital Signs Pulse 86 11/18/23 11:34 BP 112/58 L 11/18/23 11:34 Pulse Ox 96 11/18/23 11:34 Oxygen Delivery Method Room Air 11/18/23 11:34 BMI result Body Mass Index 22.3 Tobacco/Smoking Status: Tobacco use Status Tobacco use date assessed 05/20/23 11/18/23 11:35 Patient Tobacco Use Status Former Tobacco user 11/18/23 11:35 Tobacco use type Cigarette 11/18/23 11:35 e-Cigarette/Vaping Use Never Used 11/18/23 11:35 PHQ-9: PHQ-9 Score PHQ-9: Total score 0 11/18/23 11:35 Depression Screening Interpretation: Negative Thrive Assessment: Date of Thrive Assessment Date Thrive assessed 05/20/23 11/18/23 11:35 Const General: cooperative, comfortable, no acute distress and alert Neck Neck: Yes no lymphadenopathy Thyroid: Thyroid normal Resp Effort & Inspection: normal respiratory effort Auscultation: clear to auscultation bilaterally Percussion: percussion normal Cardio Jugular venous distension: no JVD Palpation: normal PMI Rate: regular rate Rhythm: regular rhythm Heart sounds: S1 normal heart sound present and S2 normal heart sound present GI Inspection: Yes normal to inspection Palpation (GI): No hepatosplenomegaly present Skin General skin exam: no rashes or lesions noted Extrem General: Yes no clubbing, cyanosis or edema Assessment and Plan Assessment & Plan (1) Allergic rhinitis: Code(s): J30.9 - Allergic rhinitis, unspecified Plan: stable; same rx Coding Level of Care Code Est Pt Level 3 (85451) Diagnoses Allergic rhinitis J30.9
== END 2023-11-18 12:11 | disposition home or self-care (01) ==
PROVIDERS: PCP Internal Medicine; Visit Provider Internal Medicine
DX: J30.9 Allergic rhinitis, unspecified (principal)
CPT/HCPCS: 99213

== ENCOUNTER 2024-04-03 09:39 | Outpatient (AMB) | payer MEDICARE, SELFPAY ==
--- NOTE | 2024-04-03 09:42 | MHC.PC.OV ---
Vital Signs 04/03/24 09:44 Height 5 ft 1 in Weight 119 lb 4 oz BMI 22.5 BP 110/62 Blood Pressure Location Lt brachial Position Sitting Pulse 86 Pulse Source Pulse Oximeter Pulse Oximetry (%) 96 Oxygen Delivery Method Room Air Intake Visit Reasons: having trouble in stomach Intake Note: Patient is here to follow up on stomach pain. 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 Mother No problems noted. Social History Housing: House Alcohol intake: current Alcohol intake frequency: a few times a week Patient Tobacco Use Status: Former Tobacco user Tobacco use type: Cigarette e-Cigarette/Vaping Use: Never Used Second Hand Smoke Exposure: No service: No Current occupational status: retired Cognitive needs: No Hearing needs: No Vision needs: Yes Questionnaire Thrive Questionnaire Date Thrive assessed: 05/20/23 JUSTUS-7 AMB Questionnaire JUSTUS-7 Date JUSTUS - 7 assessed: 05/20/23 Source: Developed by Drs. Bandar Banks, Mary Grace Cervantes, Gene Oakley and colleagues, with an educational italo from [employer]. Review of Systems Const Denies chills, Denies headache(s) and Denies weight loss ENT Denies headache(s) Card Denies chest pain, Denies syncope, Denies irregular heart rhythm and Denies dyspnea Resp Denies chest congestion, Denies cough and Denies dyspnea GI Denies change in stool character, Denies nausea and Denies vomiting Musc Denies deformity and Denies joint swelling Neuro Denies syncope and Denies headache(s) Physical exam (Primary Care) Vital Signs: Last Vital Signs Pulse 86 04/03/24 09:44 BP 110/62 04/03/24 09:44 Pulse Ox 96 04/03/24 09:44 Oxygen Delivery Method Room Air 04/03/24 09:44 BMI result Body Mass Index 22.5 Tobacco/Smoking Status: Tobacco use Status Tobacco use date assessed 04/03/24 04/03/24 09:49 Patient Tobacco Use Status Former Tobacco user 04/03/24 09:49 Tobacco use type Cigarette 04/03/24 09:49 e-Cigarette/Vaping Use Never Used 04/03/24 09:49 Thrive Assessment: Date of Thrive Assessment Date Thrive assessed 05/20/23 04/03/24 09:49 Const General: cooperative, comfortable, no acute distress and alert Neck Neck: Yes no lymphadenopathy Thyroid: Thyroid normal Resp Effort & Inspection: normal respiratory effort Auscultation: clear to auscultation bilaterally Percussion: percussion normal Cardio Jugular venous distension: no JVD Palpation: normal PMI Rate: regular rate Rhythm: regular rhythm Heart sounds: S1 normal heart sound present and S2 normal heart sound present GI Inspection: Yes normal to inspection Palpation (GI): No hepatosplenomegaly present Skin General skin exam: no rashes or lesions noted Extrem General: Yes no clubbing, cyanosis or edema Coding Level of Care Code Est Pt Level 3 (12666) Diagnoses Abdominal pain R10.9 Assessment & Plan Assessment & Plan (1) Abdominal pain: Code(s): R10.9 - Unspecified abdominal pain Category: Medical Plan: labs and US Orders: Orders Complete Blood Count Auto Diff Today Z13.0 - Encounter for screening for diseases of the blood and blood-forming organs and certain disorders involving the immune mechanism Basic Metabolic Panel Today R10.9 - Unspecified abdominal pain US abdomen complete Today R10.9 - Unspecified abdominal pain
[2024-04-03 09:44] VITALS: BP 110/62; PULSE 86; O2SAT 96; BMI 22.5
== END 2024-04-03 09:59 | disposition home or self-care (01) ==
PROVIDERS: PCP Internal Medicine; Visit Provider Internal Medicine
DX: R10.9 Unspecified abdominal pain (principal)

== ENCOUNTER → 2024-04-03 09:39 | Outpatient (BNVA) | payer MEDICARE, SELFPAY | PROVIDERS: PCP Internal Medicine; Visit Provider Internal Medicine | DX: R10.9 Unspecified abdominal pain (principal) | CPT/HCPCS: 99212 ==

== ENCOUNTER 2024-04-09 08:39 | Outpatient (REF) | payer MEDICARE, SELFPAY ==
--- NOTE | ~2024-04-09 | US_ITS ---
EXAMINATION: US ABDOMEN COMPLETE CLINICAL INFORMATION: Abdominal pain.. COMPARISON: CT abdomen and pelvis 04/17/2013 TECHNIQUE: Real-time imaging of the abdominal viscera. FINDINGS: PANCREAS: Visualized head and the body the pancreas is homogeneous echotexture. The tail is obscured by overlying gas. ABDOMINAL AORTA: Mid abdominal aorta is of normal caliber. The the distal segments are not seen. INFERIOR VENA CAVA: Visualized portions are normal. LIVER: The liver is normal in size. The liver contour is normal. Parenchymal echogenicity is normal. No focal hepatic lesion. There is no intrahepatic biliary duct dilatation seen. Normal hepatopedal flow seen in the middle portal vein on Doppler exam. GALLBLADDER: There are multiple echogenic stones with a positive wall echo sign. Gallbladder wall thickness is 0.2 cm. COMMON BILE DUCT: Normal in caliber measuring 0.3 cm proximal, 0.7 cm distal diameter. RIGHT KIDNEY: No hydronephrosis. There is anechoic cyst mid pole measuring 2.8 x 2.8 x 3.3 cm. The kidney measures 10.5 cm in maximum dimension. There is mild pelvic fullness LEFT KIDNEY: No hydronephrosis. There is anechoic cyst in the left kidney measuring 1.2 x 0.9 x 1.3 cm The kidney measures 10.1 cm in maximum dimension. There is mild pelvic fullness SPLEEN: The spleen measures 7.0 cm in maximum dimension. FREE FLUID: None. US/US abdomen complete IMPRESSION: There are bilateral renal cysts. No echogenic stones seen. Gallstones with weakly positive wall echo sign. Electronically signed by: Sonny Gordon MD 04/09/2024 11:07 AM EST
== END 2024-04-09 08:40 | disposition home or self-care (01) ==
LOC: HO.US 08:39
PROVIDERS: PCP Internal Medicine; Visit Provider Internal Medicine
DX: R10.9 Unspecified abdominal pain (principal)
CPT/HCPCS: 76700

== ENCOUNTER → 2024-04-09 08:41 | Outpatient (BNV) | payer MEDICARE, SELFPAY | PROVIDERS: PCP Internal Medicine; Visit Provider Radiology Diagnostic Radiology | DX: N28.1 Cyst of kidney, acquired (principal); K80.20 Calculus of gallbladder without cholecystitis without obstruction | CPT/HCPCS: 76700 ==

== ENCOUNTER 2024-05-20 11:20 | Outpatient (AMB) | payer MEDICARE, SELFPAY ==
--- NOTE | 2024-05-20 11:36 | A.OFFPC_ITS ---
Vital Signs 05/20/24 11:38 Height 5 ft 1 in Weight 118 lb BMI 22.3 BP 120/64 Blood Pressure Location Lt brachial Position Sitting Pulse 94 Pulse Source Pulse Oximeter Temp 97.1 F Temp Source Skin Pulse Oximetry (%) 96 Oxygen Delivery Method Room Air Intake Visit Reasons: 3mth f/u Intake Note: Patient is here to follow up on GERD. 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 Accompanied by: Spouse Allergies cat dander Allergy (Mild, Verified 05/20/24 11:38) Unknown Medication List - Last Reconciled 05/21/24 by Michele Wright MD cetirizine (24Hour Allergy) 10 mg PO DAILY PRN omeprazole 20 mg PO DAILY Tobacco use date assessed: 05/20/24 Fall risk assessment: No Falls in past year Last assessed Fall Risk: 05/20/24 Dental Screening Dental Screen Date: 05/20/24 Did you have a dental visit in the last 12 months?: Yes Did you have a dental problem in the last 6 months where you did not have access to dental care?: No Was dental information given to patient?: Patient has dentist HPI 3mth f/u HPI Details mild cognitve decline; has gallstones but not many symptoms at present [facility] Medical History Chronic GERD Surgical History History of appendectomy Family History Father No problems noted. Mother No problems noted. Social History Housing: House Alcohol intake: current Alcohol intake frequency: a few times a week Patient Tobacco Use Status: Former Tobacco user Tobacco use type: Cigarette e-Cigarette/Vaping Use: Never Used Second Hand Smoke Exposure: Yes service: No Current occupational status: retired Cognitive needs: No Hearing needs: No Vision needs: Yes Questionnaire PHQ-9 Over the last 2 weeks, how often have you been bothered by any of the following problems? 1. Little interest or pleasure in doing things: not at all 2. Feeling down, depressed, or hopeless: not at all 3. Trouble falling or staying asleep, or sleeping too much: not at all 4. Feeling tired or having little energy: not at all 5. Poor appetite or overeating: not at all 6. Feeling bad about yourself - or that you are a failure or have let yourself or your family down: not at all 7. Trouble concentrating on things, such as reading the newspaper or watching television: not at all 8. Moving or speaking so slowly that other people could have noticed. Or the opposite - being so fidgety or restless that you have been moving around a lot more than usual: not at all 9. Thoughts that you would be better off or of hurting yourself in some way: not at all Total score: 0 Depression Screening Interpretation: Negative Depression Screening Done: Yes Source: Developed by Drs. Bandar Banks, Mary Grace Cervantes, Gene Oakley and colleagues, with an educational italo from [employer]. Thrive Questionnaire Date Thrive assessed: 05/20/24 I am a: Patient What is your living situation today?: I have a steady place to live Within the past 12 months, did the food you bought not last and you didn't have the money to get more?: Never true Within the past 12 months, did you worry whether your food would run out before you got money to buy more?: Never true Do you have trouble paying for medicines?: No Do you have trouble getting transportation to medical appointments?: No Do you have trouble paying your heating and electricity bill?: No Do you have trouble taking care of your child, family member or friend?: No Do you have trouble with day-to-day activities such as bathing, preparing meals, shopping, managing finances, etc.?: No Are you currently unemployed and looking for a job?: No Are you interested in more education?: No Please select the resources that you would like help with: None Currently or been in a relationship where the following occur: No concerns reported THRIVE Score: 0 AUDIT C Alcohol Use Questionnaire (AUDIT-C) 1. How often do you have a drink containing alcohol?: 4 or more times a week 2. How many drinks containing alcohol do you have on a typical day when you are drinking?: 1 or 2 Total Score: 4 JUSTUS-7 AMB Questionnaire JUSTUS-7 Date JUSTUS - 7 assessed: 05/20/24 Feeling nervous, anxious, or on edge: 0 = Not at all Not being able to stop or control worryin = Not at all Worrying too much about different things: 0 = Not at all Trouble relaxin = Not at all Being so restless that it is hard to sit still: 0 = Not at all Becoming easily annoyed or irritable: 0 = Not at all Feeling afraid as if something awful might happen: 0 = Not at all Total JUSTUS-7 score (0-4 normal; 5-9 mild; 10-14 moderate; 15-21 severe): 0 Source: Developed by Drs. Bandar Banks, Mary Grace Cervantes, Gene Oakley and colleagues, with an educational italo from [employer]. Review of Systems Const Denies chills, Denies headache(s) and Denies weight loss ENT Denies headache(s) Card Denies chest pain, Denies syncope, Denies irregular heart rhythm and Denies dyspnea Resp Denies chest congestion, Denies cough and Denies dyspnea GI Denies abdominal pain, Denies change in stool character, Denies nausea and Denies vomiting Musc Denies deformity and Denies joint swelling Neuro Denies syncope and Denies headache(s) Physical exam (Primary Care) Vital Signs: Last Vital Signs Temp 97.1 F 05/20/24 11:38 Pulse 94 05/20/24 11:38 BP 120/64 05/20/24 11:38 Pulse Ox 96 05/20/24 11:38 Oxygen Delivery Method Room Air 05/20/24 11:38 BMI result Body Mass Index 22.3 Tobacco/Smoking Status: Tobacco use Status Tobacco use date assessed 05/20/24 05/20/24 11:43 Patient Tobacco Use Status Former Tobacco user 05/20/24 11:43 Tobacco use type Cigarette 05/20/24 11:43 e-Cigarette/Vaping Use Never Used 05/20/24 11:43 PHQ-9: PHQ-9 Score PHQ-9: Total score 0 05/20/24 11:43 Depression Screening Interpretation: Negative Thrive Assessment: Date of Thrive Assessment Date Thrive assessed 05/20/24 05/20/24 11:43 Currently or been in a relationship where the following occur: No concerns reported Const General: cooperative, comfortable, no acute distress and alert Neck Neck: Yes no lymphadenopathy Thyroid: Thyroid normal Resp Effort & Inspection: normal respiratory effort Auscultation: clear to auscultation bilaterally Percussion: percussion normal Cardio Jugular venous distension: no JVD Palpation: normal PMI Rate: regular rate Rhythm: regular rhythm Heart sounds: S1 normal heart sound present and S2 normal heart sound present GI Inspection: Yes normal to inspection Palpation (GI): No hepatosplenomegaly present Skin General skin exam: no rashes or lesions noted Extrem General: Yes no clubbing, cyanosis or edema Coding Level of Care Code Est Pt Level 3 (07378) Diagnoses Cognitive decline R41.89 Cholelithiases K80.20 Assessment & Plan Assessment & Plan (1) Cognitive decline: Code(s): R41.89 - Other symptoms and signs involving cognitive functions and awareness Category: Medical Plan: stable (2) Cholelithiases: Code(s): K80.20 - Calculus of gallbladder without cholecystitis without obstruction Category: Medical Plan: observe for now
[2024-05-20 11:38] VITALS: BP 120/64; PULSE 94; TEMP 36.2; O2SAT 96; BMI 22.3
--- OUTSIDE RECORDS SUMMARY | 2024-05-20 13:16 | XMS_ITS | Clinical Summary ---
Author Organization [facility] [employer] Address [address] [place] [address] Care Team Providers Care Chief Guard Name Role Phone Unavailable Primary Care Provider Unavailabl e Immunizations Name Administration Dates Next Due Influenza, seasonal, injectable, preservative fr ee 12/25/2023 Pfizer Covid-19 Vaccine 12+ 12/25/2023 Social History Tobacco Use Types Packs/Day Years Used Date Smoking Tobacco: Never Assessed Comments Unknown Sex and Gender Information Value Date Recorded Sex Assigned at Female 12/31/2023 3:37 PM EDT Legal Sex Female 3:37 PM EDT Gender Identity Female 12/31/2023 3:37 PM EDT Sexual Orientation Straight 12/26/2023 3: 01 PM EDT Plan of Treatment Health Maintenance Due Date Last Done Comments Depression Screening 1940 SDOH Screening 1940 Alcohol/Substance Use Screening 1952 Tobacco Screening 1952 DTaP/Tdap/Td Vaccines (1 - Tdap) 1959 Pneumococcal Vaccine: 50+ Ye ars (1 of 1 - PCV) 1990 Zoster Vaccines (1 of 2) 1990 RSV Patients and Pa tients Aged 60 years or older (1 - 1-dose 75+ series) 2015 COVID-19 Vaccine Completed 12/25/2023 Influenza Vaccine Completed 12/25/2023 HIB Vaccines Aged Out No longer eligi ble based on patient's age to complete this topic HPV Vaccines Aged Out No longer eligi ble based on patient's age to complete this topic Hepatitis A Vaccines Aged Out No long er eligible based on patient's age to complete this topic Hepatitis B Vaccines Aged Out No long er eligible based on patient's age to complete this topic IPV Vaccines Aged Out No longer eligi ble based on patient's age to complete this topic Meningococcal Vaccine Aged Out No eileen tim eligible based on patient's age to complete this topic RSV under 20 months Aged Out No longe r eligible based on patient's age to complete this topic Rotavirus Vaccines Aged Out No longer eligible based on patient's age to complete this topic Insurance [place] [address] [place] [id number] [facility]
== END 2024-05-20 12:01 | disposition home or self-care (01) ==
PROVIDERS: PCP Internal Medicine; Visit Provider Internal Medicine
DX: R41.89 Other symptoms and signs involving cognitive functions and awareness (principal); K80.20 Calculus of gallbladder without cholecystitis without obstruction

== ENCOUNTER → 2024-05-20 11:20 | Outpatient (BNVA) | payer MEDICARE, SELFPAY | PROVIDERS: PCP Internal Medicine; Visit Provider Internal Medicine | DX: R41.89 Other symptoms and signs involving cognitive functions and awareness (principal); K80.20 Calculus of gallbladder without cholecystitis without obstruction | CPT/HCPCS: 99212 ==

== ENCOUNTER 2024-08-20 10:55 | Outpatient (AMB) | payer MEDICARE, SELFPAY ==
[2024-08-20 11:06] VITALS: BP 110/72; PULSE 88; O2SAT 98; BMI 21.9
--- NOTE | 2024-08-20 11:06 | A.OFFPC_ITS ---
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 Required: No Accompanied by: Self / Same As Patient Allergies cat dander Allergy (Mild, Verified 08/20/24 11:33) Unknown Medication List - Last Reconciled 08/20/24 by Samantha Betts PA-C omeprazole 20 mg PO DAILY Tobacco use date assessed: 08/20/24 Fall risk assessment: No Falls in past year Last assessed Fall Risk: 08/20/24 Dental Screening Dental Screen Date: 08/20/24 Did you have a dental visit in the last 12 months?: Yes Did you have a dental problem in the last 6 months where you did not have access to dental care?: No Was dental information given to patient?: Patient has dentist HPI YONAS Dr Wright HPI Details 84-year-old female with past medical his tory of chronic GERD, cognitive declined and cholelithiasis last seen 05/[address] Wright coming in for transfer of care. Presenting for a follow-up on allergies and previously diagnosed cholelithiasis. She has longstanding allergic rhinitis primarily triggered by cats. She also has GERD and previously identified gallstones, currently asymptomatic. She experiences episodic abdominal pain occurring twice a week, with ambulation providing relief, and reports no accompanying systemic symptoms like nausea or alterations in stool. She has noted age-related memory decline, predominantly characterized by minor forgetfulness. Bilateral hearing loss is acknowledged, but hearing aids are not utilized currently. Patient follows with the eye doctor yearly. [facility] Medical History Chronic GERD Surgical History History of appendectomy Family History Father No problems noted. Mother No problems noted. Social History Housing: House Alcohol intake: current Alcohol intake frequency: a few times a week Patient Tobacco Use Status: Former Tobacco user Tobacco use type: Cigarette e-Cigarette/Vaping Use: Never Used Second Hand Smoke Exposure: Yes service: No Current occupational status: retired Cognitive needs: No Hearing needs: No Vision needs: Yes Questionnaire PHQ-9 Over the last 2 weeks, how often have you been bothered by any of the following problems? 1. Little interest or pleasure in doing things: nearly every day 2. Feeling down, depressed, or hopeless: not at all 3. Trouble falling or staying asleep, or sleeping too much: not at all 4. Feeling tired or having little energy: not at all 5. Poor appetite or overeating: not at all 6. Feeling bad about yourself - or that you are a failure or have let yourself or your family down: not at all 7. Trouble concentrating on things, such as reading the newspaper or watching television: not at all 8. Moving or speaking so slowly that other people could have noticed. Or the opposite - being so fidgety or restless that you have been moving around a lot more than usual: not at all 9. Thoughts that you would be better off or of hurting yourself in some way: not at all Total score: 3 Depression Screening Interpretation: Negative Depression Screening Done: Yes Source: Developed by Drs. Bandar Banks, Mary Grace Cervantes, Gene Oakley and colleagues, with an educational italo from [employer]. Thrive Questionnaire Date Thrive assessed: 08/20/24 I am a: Patient What is your living situation today?: I have a steady place to live Within the past 12 months, did the food you bought not last and you didn't have the money to get more?: Never true Within the past 12 months, did you worry whether your food would run out before you got money to buy more?: Never true Do you have trouble paying for medicines?: No Do you have trouble getting transportation to medical appointments?: No Do you have trouble paying your heating and electricity bill?: No Do you have trouble taking care of your child, family member or friend?: No Do you have trouble with day-to-day activities such as bathing, preparing meals, shopping, managing finances, etc.?: No Are you currently unemployed and looking for a job?: No Are you interested in more education?: No Please select the resources that you would like help with: None Currently or been in a relationship where the following occur: No concerns reported THRIVE Score: 0 AUDIT C Alcohol Use Questionnaire (AUDIT-C) 1. How often do you have a drink containing alcohol?: 4 or more times a week 2. How many drinks containing alcohol do you have on a typical day when you are drinking?: 1 or 2 3. How often do you have six or more drinks on one occasion?: Never Total Score: 4 JUSTUS-7 AMB Questionnaire JUSTUS-7 Date JUSTUS - 7 assessed: 08/20/24 Feeling nervous, anxious, or on edge: 0 = Not at all Not being able to stop or control worryin = Not at all Worrying too much about different things: 0 = Not at all Trouble relaxin = Not at all Being so restless that it is hard to sit still: 0 = Not at all Becoming easily annoyed or irritable: 0 = Not at all Feeling afraid as if something awful might happen: 0 = Not at all Total JUSTUS-7 score (0-4 normal; 5-9 mild; 10-14 moderate; 15-21 severe): 0 Source: Developed by Drs. Bandar Banks, Mary Grace Cervantes, Gene Oakley and colleagues, with an educational italo from [employer]. JUSTUS-7 Assessment Billing JUSTUS-7 Assessment Tool: JUSTUS-7 Assessment 92771 Review of Systems Const Denies body aches, Denies chills, Denies fever(s), Denies headache(s) and Denies poor appetite Eyes Reports no additional complaints ENT Denies dysphagia, Denies dizziness, Denies headache(s) and Denies odynophagia Card Denies chest pain, Denies syncope, Denies edema, Denies irregular heart rhythm, Denies lightheadedness and Denies dyspnea Resp Denies cough and Denies dyspnea GI Reports abdominal pain, Denies constipation, Denies dysphagia, Denies diarrhea, Denies nausea, Denies odynophagia and Denies vomiting Reports no additional complaints Musc Reports no additional complaints and Denies abnormal gait Skin/Breast Reports system reviewed and no additional complaints, except as documented Neuro Denies abnormal gait, Denies dizziness, Denies syncope and Denies headache(s) Psych Reports no additional complaints Physical exam (Primary Care) Vital Signs: Last Vital Signs Pulse 88 08/20/24 11:06 BP 110/72 08/20/24 11:06 Pulse Ox 98 08/20/24 11:06 Oxygen Delivery Method Room Air 08/20/24 11:06 BMI result Body Mass Index 21.9 Tobacco/Smoking Status: Tobacco use Status Tobacco use date assessed 08/20/24 08/20/24 11:11 Patient Tobacco Use Status Former Tobacco user 08/20/24 11:11 Tobacco use type Cigarette 08/20/24 11:11 e-Cigarette/Vaping Use Never Used 08/20/24 11:11 PHQ-9: PHQ-9 Score PHQ-9: Total score 3 08/20/24 11:41 Depression Screening Interpretation: Negative Thrive Assessment: Date of Thrive Assessment Date Thrive assessed 08/20/24 08/20/24 11:11 Currently or been in a relationship where the following occur: No concerns reported Const General: cooperative, healthy appearing, comfortable and no acute distress Orientation/consciousness: patient oriented x3 HENMT Head: Yes normocephalic Ears: hearing grossly normal bilaterally General nose exam: Normal external nose present Eyes General: appearance normal, both eyes and all related structures Conjunctivae: conjunctivae normal Neck Neck: Yes full ROM and Yes no lymphadenopathy Resp Effort & Inspection: normal respiratory effort Auscultation: clear to auscultation bilaterally, no crackles, no rales, no rhonchi and no wheezes Cardio Rate: regular rate Rhythm: regular rhythm GI Palpation (GI): Soft to palpation, not firm, nontender, no guarding, not rigid and No Rebound tenderness present Skin General skin exam: no rashes or lesions noted Neuro General: patient oriented x3 Gait exam (Neuro): Normal gait present Extrem General: Yes normal to inspection, Yes full ROM and No edema Psych Affect: normal affect Attitude: cooperative Insight: Good insight present (Psych) Judgement: Good judgement present (Psych) Coding Level of Care Code Est Pt Level 3 (06251) Diagnoses Chronic GERD K21.9 Cholelithiases K80.20 Hearing loss H91.90 Cognitive decline R41.89 Abdominal pain R10.9 Additional Codes JUSTUS-7 Assessment Billing - JUSTUS-7 Assessment Tool: JUSTUS-7 Assessment 99405 ([id number]) Assessment & Plan Assessment & Plan (1) Chronic GERD: Code(s): K21.9 - Gastro-esophageal reflux disease without esophagitis Category: Medical Plan: Avoid trigger foods such as citrus, tomato products, soda, caffeine, spicy foods and other foods that may be irritating to your stomach. Avoid laying flat 3-4 hours after eating and elevate the head of the bed 30 degrees to prevent acid from moving into the esophagus. Continue on omeprazole (2) Cholelithiases: Code(s): K80.20 - Calculus of gallbladder without cholecystitis without obstruction Category: Medical Plan: Patient is currently asymptomatic with cholelithiasis. Plan to continue to monitor at this time. Her abdominal pain that she reports is in the lower lower abdominal and suprapubic area not consistent with biliary colic. Avoid eating fatty foods. (3) Hearing loss: Code(s): H91.90 - Unspecified hearing loss, unspecified ear Category: Medical Plan: Patient does not report significant hearing loss and declines the need for h earing aids at this time. (4) Cognitive decline: Code(s): R41.89 - Other symptoms and signs involving cognitive functions and awareness Category: Medical Plan: Patient does endorse mild forgetfulness and does not impair her daily activities. Continue to monitor at this time. (5) Abdominal pain: Code(s): R10.9 - Unspecified abdominal pain Category: Medical Plan: Patient reporting episodic mild low abdominal/suprapubic pain recurring about 2 days a week that resolves with ambulation. Abdominal ultrasound negative with the exception of gallstones which have now believe is because of her pain. Advised patient to keep a diary of her symptoms to bring to the next visit. Reviewed red flag symptoms and when to present for re-evaluation. Plan We discussed maintaining a comprehensive pain diary related to her episodic abdominal discomfort to identify possible patterns or triggers. Blood tests are ordered to monitor general health, including blood counts. Concerning memory concerns, no formal cognitive assessment is deemed necessary given mild age- related forgetfulness. Despite having hearing loss, hearing aids are not pursued as the patient feels her hearing impairment does not significantly impair function. Abdominal ultrasound results from April showing asymptomatic gallstones are noted, with no current required action. Advice was given to increase physical activity levels to potentially alleviate musculoskeletal discomfort related to prolonged sitting behavior. A follow-up appointment is scheduled in three months to review lab results and revisit any persisting or new concerns. This note was constructed using voice recognition software. While every effort has been made to ensure accuracy and uniform patrol police officer, still areas may have been included sometimes these areas may affect the content or meeting of the given symptoms. Total time spent caring for the patient today was 30 minutes. This includes time spent before the visit reviewing the chart, time spent during the visit, and time spent after the visit and documentation. Patient was informed and verbally consented to the use of an ambient scribe for clinic note documentation during this visit. Orders: Orders Complete Blood Count Auto Diff Today Z00.00 - Encounter for general adult medical examination without abnormal findings Comprehensive Met. Panel Today Z00.00 - Encounter for general adult medical examination without abnormal findings Free T4 (Free Thyroxine) Today Z00.00 - Encounter for general adult medical examination without abnormal findings Vitamin B12 and Folate Today Z00.00 - Encounter for general adult medical examination without abnormal findings Vitamin D 25-OH Total Today Z00.00 - Encounter for general adult medical examination without abnormal findings Lipid Panel Today Z13.220 - Encounter for screening for lipoid disorders Hemoglobin A1c Today Z13.1 - Encounter for screening for diabetes mellitus TSH reflex Free T4 Today Z00.00 - Encounter for general adult medical examination without abnormal findings
--- OUTSIDE RECORDS SUMMARY | 2024-08-20 12:07 | XMS_ITS | Clinical Summary ---
Author Organization [employer] Address [address] [place] [address] Care Team Providers Care Director Sales Support Name Role Phone Unavailable Primary Care Provider Unavailabl e Encounters Date Type Department Care Team Description 06/30/2024 2:50 PM EDT Immunization [facility] [address] [place] [address] Encounter for immunization from Last 3 Months Immunizations Immunization Administration Dates Next Due Influenza, seasonal, injectable, preservative fr ee 12/25/2023 Pfizer Covid-19 Vaccine 12+ 06/30/2024, Social History Tobacco Use Types Packs/Day Years [...] 1952 DTaP/Tdap/Td Vaccines (1 - Tdap) 1959 Zoster Vaccines (1 of 2) 1990 RSV Patients and Patients Aged 60 years or older (1 - 1-dose 75+ series) 2015 Pneumococcal Vaccine: 50+ Years Completed 08/19/2018, 01/31/2018 Influenza Vaccine Completed 12/25/2023, , 01/15/2022, Additional history exists COVID-19 Vaccine Completed 06/30/2024, , 02/06/2023, Additional history exists HIB Vaccines Aged Out No longer eligi [...] age to complete [place] [id number] [facility] [employer]
== END 2024-08-20 11:59 | disposition home or self-care (01) ==
LOC: HO.HMCH 10:56
DX: K21.9 Gastro-esophageal reflux disease without esophagitis (principal); K80.20 Calculus of gallbladder without cholecystitis without obstruction; H91.90 Unspecified hearing loss, unspecified ear; R41.89 Other symptoms and signs involving cognitive functions and awareness; R10.9 Unspecified abdominal pain

== ENCOUNTER → 2024-08-20 10:55 | Outpatient (BNVA) | payer MEDICARE, SELFPAY | DX: K21.9 Gastro-esophageal reflux disease without esophagitis (principal); K80.20 Calculus of gallbladder without cholecystitis without obstruction; R10.9 Unspecified abdominal pain; R41.89 Other symptoms and signs involving cognitive functions and awareness | CPT/HCPCS: 96127; 99212 ==

== ENCOUNTER 2024-08-24 10:13 | Outpatient (REF) | payer MEDICARE, SELFPAY ==
[2024-08-24 10:32] LABS: MANUAL DIFF FLAG NO
[2024-08-24 10:55] LABS: Basophils Absolute Auto 0.1 X10*3/uL (0.0-0.2); Basophils Percent Auto 1.3 % (0-2); Eosinophils Absolute Auto 0.2 X10*3/uL (0.0-0.4); Eosinophils Percent Auto 3.4 % (0-4); Hematocrit 42.3 % (37.0-47.0); Hemoglobin 14.2 g/dl (12.0-16.0); Imm Gran Abs Auto 0.01 X10*3/uL (0.00-0.03); Imm Gran Pct Auto 0.1 % (0.0-0.4); Lymphocytes Absolute Auto 1.3 X10*3/uL (1.2-4.9); Lymphocytes Percent Auto 19.6 % (20-40); Mean Corpuscular HGB Conc 33.6 g/dl (31.0-35.0); Mean Corpuscular Volume 95.3 fL (80.0-98.0); Monocytes Absolute Auto 0.6 X10*3/uL (0.1-1.2); Monocytes Percent Auto 8.5 % (2-11); Neutrophils Absolute Auto 4.5 x10*3/uL (2.0-8.3); Neutrophils Percent Auto 67.1 % (45-73); Platelet Count 257 X10*3/uL (160-400); Red Blood Count 4.44 X10*6/uL (4.20-5.50); White Blood Count 6.7 X10*3/uL (4.8-10.8)
[2024-08-24 11:04] LABS: Estimated Average Glucose 100 mg/dL; Hemoglobin A1C 120.8591 umol/L; Hemoglobin A1c % 5.1 % (<6.0)
[2024-08-24 12:01] LABS: Folate 9.5 ng/mL (> or = 4.0); Vitamin B12 363 pg/mL (200-900)
[2024-08-24 12:18] LABS: Alanine Aminotransferase 18 U/L (0-31); Albumin Level 4.3 g/dL (3.5-5.0); Alkaline Phosphatase 75 U/L (39-117); Anion Gap 12 (12-20); Aspartate Amino Transferase 24 U/L (5-31); Bilirubin Total 0.8 mg/dL (0.0-1.0); Blood Urea Nitrogen 9 mg/dL (9-16); Calcium 9.3 mg/dL (8.4-10.2); Carbon Dioxide 28 mmol/L (22-29); Chloride 107 mmol/L (96-108); Cholesterol 204 mg/dL (<200); Estimated Glomerular Filt Rate > 60; Free T4 (Free Thyroxine) 0.94 ng/dL (0.71-1.85); Glucose Random 100 mg/dL (60-115); HDL Cholesterol 57 mg/dL (>40); LDL Cholesterol Calculated 125 mg/dL (<100); Potassium 4.6 mmol/L (3.3-5.1); Sodium 142 mmol/L (135-145); TSH reflex Free T4 1.62 uIU/mL (0.32-4.0); Total Protein 7.2 g/dL (6.5-8.0); Triglycerides 111 mg/dL (<150); Vitamin D 25-OH Total 67.5 ng/mL (>30)
== END 2024-08-24 10:14 | disposition home or self-care (01) ==
LOC: HO.LAB 10:13
DX: Z00.00 Encounter for general adult medical examination without abnormal findings (principal); Z13.1 Encounter for screening for diabetes mellitus; Z13.220 Encounter for screening for lipoid disorders; Z13.29 Encounter for screening for other suspected endocrine disorder; Z13.0 Encounter for screening for diseases of the blood and blood-forming organs and certain disorders involving the immune mechanism
CPT/HCPCS: 36415; 80053; 80061; 82306; 82607; 82746; 83036; 84439; 84443; 85025

== ENCOUNTER 2024-08-29 21:00 | Emergency (ER) | payer MEDICARE, SELFPAY ==
--- NOTE | ~2024-08-29 | US_ITS ---
CLINICAL HISTORY: pain swelling Venous duplex ultrasound left lower extremity Comparison: None Findings: The visualized deep veins are fully compressible with normal Doppler color flow and spectral tracings. Left Layton's cyst measuring 4.1 x 1.7 x 0.9 cm. IMPRESSION: 1. Negative for left lower extremity deep vein thrombosis. 2. Layton's cyst noted. This document has been electronically signed by: Marvin Meadows MD on 08/29/2024 23:26:39
--- NOTE | ~2024-08-29 | XR_ITS ---
CLINICAL HISTORY: pain swelling 2 view left knee Comparison: None Findings: Small knee joint effusion. Fullness and increased opacity in the popliteal region likely reflective of Layton's cysts. No fracture or dislocation. Moderate tricompartmental osteoarthritic changes. No foreign body. IMPRESSION: 1. Probable Layton's cyst and small knee joint effusion with moderate degenerative changes. No acute fracture. This document has been electronically signed by: Marvin Meadows MD on 08/29/2024 23:35:37
[2024-08-29 21:03] VITALS: BP 111/44; PULSE 82; RESP 14; TEMP 36.3; O2SAT 96; BMI 19.9
--- NOTE | 2024-08-29 21:35 | ED.GENADULT ---
HPI - General Adult General Chief complaint: Extremity Injury, Lower Stated complaint: left leg pain Time Seen by Provider: 08/29/24 21:13 Source: patient Limitations: no limitations History of Present Illness ED Provider: Sandrine Pardo PA-C HPI narrative: 84-year-old female with a history of mild cognitive impairment, hearing loss, GERD who presents with left lower extremity discomfort x4 days. Patient states she has been having discomfort from lower thigh to behind the knee, to mid calf. When patient extends her leg, she states she feels tight. Patient states today she feels as if her calf is subtly larger than the right side. Patient states she is physically active, she purposely walks up and down the stairs within her home for exercise. She denies new activity or excessive exercise that could have precipitated her symptoms. There was no fall, no trauma. No redness or swelling of the knee itself. Denies low back pain. Related Data Previous Rx's ?Medication ?Instructions ?Recorded omeprazole 20 mg capsule,delayed 20 mg PO DAILY #90 caps 06/11/24 release meloxicam 7.5 mg tablet 7.5 mg PO DAILY #7 tabs 08/29/24 Allergies Allergy/AdvReac Type Severity Reaction Status Date / Time cat dander Allergy Mild Unknown Verified 08/29/24 21:09 Review of Systems Review of Systems: Yes all other systems are reviewed and are negative Constitutional: Constitutional: Denies fatigue and Denies fever(s) Cardiovascular: Cardiovascular: Denies chest pain and Denies dyspnea Respiratory: Respiratory: Denies cough and Denies dyspnea Gastrointestinal: Gastrointestinal: Denies abdominal pain Musculoskeletal: Musculoskeletal: Denies back pain, Reports arthralgias, Denies joint swelling, Denies muscle cramps, Denies radiating pain into limb and Denies tingling Neurologic: Denies tingling Endocrine: Endocrine: Denies fatigue PMFSH Past Medical History Attestation statement: The following information was validated with the patient. Medical History Chronic GERD Surgical History History of appendectomy Family History Family History Father No problems noted. Mother No problems noted. Social History Social History Housing: House Unable to assess alcohol history related to: Unknown Alcohol intake: current Alcohol intake frequency: a few times a week Patient Tobacco Use Status: Former Tobacco user Tobacco use type: Cigarette e-Cigarette/Vaping Use: Never Used Second Hand Smoke Exposure: Yes Use of substances other than those prescribed or required for medical reasons: Unknown Advance Directives: No Advance Directives Information Provided: No Do you have a plan to hurt others: No Plan service: No Current occupational status: retired Cognitive needs: No Hearing needs: No Vision needs: Yes Physical Exam ED Vital Signs: Vital Signs - 24 hr 08/29/24 21:03 08/29/24 22:41 Temperature 97.4 F 97.9 F Pulse Rate 82 76 Respiratory Rate 14 19 Blood Pressure 111/44 L 110/60 Pulse Oximetry 96 97 Oxygen Delivery Method Room Air Room Air BMI result Body Mass Index 19.9 Const Other: Alert well-appearing Orientation/consciousness: patient oriented x3 Resp Effort & Inspection: normal respiratory effort Cardio Other: Normal peripheral perfusion, no pedal edema Skin Other: Warm dry no rash Neuro General: patient oriented x3, gait normal, no focal motor deficits and CN's II-XI intact bilaterally Extrem Other: The left calf is subtly more prominent versus the right, patient has full flexion and extension from the left knee no overlying erythema or swelling Psych Other: Cooperative Medications Administered Discontinued Medications Generic Name Dose Route Start Last Admin Trade Name Freq PRN Reason Stop Dose Admin Acetaminophen 975 mg 08/29/24 21:49 08/29/24 21:54 Acetaminophen 325 Mg Tablet PO 08/29/24 21:50 975 mg ONCE ONE Administration Medical Decision Making Medical Decision Making MDM Narrative: 84-year-old female with a history of mild cognitive impairment, hearing loss, GERD who presents with left lower extremity discomfort x4 days. Patient states she has been having discomfort from lower thigh to behind the knee, to mid calf. When patient extends her leg, she states she feels tight. Patient states today she feels as if her calf is subtly larger than the right side. Patient states she is physically active, she purposely walks up and down the stairs within her home for exercise. She denies new activity or excessive exercise that could have precipitated her symptoms. There was no fall, no trauma. No redness or swelling of the knee itself. Denies low back pain. Problem: Age History: Per patient I have considered the following differential diagnoses: Arthritis, Layton cyst, DVT, musculoskeletal strain, fracture, dislocation Plan: Fracture and dislocation or least likely, the patient has not sustained a trauma, and she is ambulatory. The patient likely has a arthritis, she admits to regular physical activity, she could have simply strained her hamstring. We will obtain an x-ray of the knee. She is insistent that the left calf is larger than the right, I can subtly visualize what she is describing, we will add on a DVT study. This will screened for Layton cyst as well. Labs not warranted at this time. I have independently reviewed the following tests: X-ray left knee: Per my read, arthritic changes noted, no fracture no dislocation......Findings: Small knee joint effusion. Fullness and increased opacity in the popliteal region likely reflective of Layton's cysts. No fracture or dislocation. Moderate tricompartmental osteoarthritic changes. No foreign body. IMPRESSION: 1. Probable Layton's cyst and small knee joint effusion with moderate degenerative changes. No acute fracture. DVT study left lower extremity: Findings: The visualized deep veins are fully compressible with normal Doppler color flow and spectral tracings. Left Layton's cyst measuring 4.1 x 1.7 x 0.9 cm. IMPRESSION: 1. Negative for left lower extremity deep vein thrombosis. 2. Layton's cyst noted. 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 Treatment (ED) Additional Instructions: The x-ray of the knee revealed that you have considerable arthritis. The ultrasound of the left lower extremity revealed that you have what is called a Layton cyst, this is related to your arthritis. There was no clot in the leg. See home care instructions. You should purchase a compression sleeve, to help support the knee joint, this will help with your discomfort. While resting, elevate the leg, you can ice the area several times a day for 15 minutes each time. Use [id number] Tylenol 1000 mg taken every 8 hours. Take the meloxicam as directed, take this medication with food. This is an anti-inflammatory. I am providing you with a contact for our orthopedic service. The cyst may require drainage. Call Saturday to make an appointment. Prescriptions: New meloxicam 7.5 mg tablet 7.5 mg PO DAILY Qty: 7 0RF No Action omeprazole 20 mg capsule,delayed release(DR/EC) 20 mg PO DAILY Qty: 90 8RF Referrals: Zak Browne MD [Physician] - (left layton's cyst) Print Language: Albanian
[2024-08-29] MEDS: Acetaminophen 325 MG TABLET 975 MG PO (21:54)
[2024-08-29 22:41] VITALS: BP 110/60; PULSE 76; RESP 19; TEMP 36.6; O2SAT 97
[2024-08-30 00:05] VITALS: BP 110/60; PULSE 76; RESP 19; TEMP 36.6; O2SAT 97
== END 2024-08-30 00:05 | disposition home or self-care (01) ==
PROVIDERS: Emergency Provider Emergency Medicine Emergency Medical Services
DX: M17.12 Unilateral primary osteoarthritis, left knee (principal); R60.0 Localized edema; M71.22 Synovial cyst of popliteal space [Baker], left knee
CPT/HCPCS: 73560; 93971; 99284

== ENCOUNTER → 2024-08-29 21:48 | Outpatient (BNV) | payer MEDICARE, SELFPAY | PROVIDERS: Emergency Provider Emergency Medicine Emergency Medical Services; Visit Provider Radiology Diagnostic Radiology | DX: R60.0 Localized edema (principal); M71.22 Synovial cyst of popliteal space [Baker], left knee; M79.605 Pain in left leg; M25.462 Effusion, left knee | CPT/HCPCS: 73560; 93971 ==

== ENCOUNTER 2024-10-02 12:56 | Outpatient (AMB) | payer MEDICARE, SELFPAY ==
--- NOTE | 2024-10-02 13:02 | A.OFFPC_ITS ---
Vital Signs 3 10/02/24 13:04 Height 5 ft 4 in Weight 111 lb 8 oz BMI 19.1 BP 128/80 Blood Pressure Location Lt brachial Position Sitting Pulse 101 H Pulse Source Pulse Oximeter Temp 97.3 F Temp Source Temporal Artery Scan Pulse Oximetry (%) 93 Oxygen Delivery Method Room Air Intake Visit Reasons: Reschedule [facility] 08/29 Left Leg Pain Youth Worker Required: No Accompanied by: Self / Same As Patient Allergies cat dander Allergy (Mild, Verified 10/02/24 13:03) Unknown Tobacco use date assessed: 08/20/24 Dental Screening Dental Screen Date: 08/20/24 HPI HPI Comments 2 History of Present Illness0 Details 84 y/o Female patient who presents to [facility] clinic today for EDF. She was admitted at [facility] on 08/29 for an evaluation and treatment of Left knee OA and Layton's cyst. She has an appointment with Orthopedics in October. [facility] Medical History (Updated 10/02/24 @ 13:53 by Jacki Starr NP) Layton's cyst of knee Chronic GERD Surgical History History of appendectomy Family History Father No problems noted. Mother No problems noted. Social History Housing: House Unable to assess alcohol history related to: Unknown Alcohol intake: current Alcohol intake frequency: a few times a week Patient Tobacco Use Status: Former Tobacco user Tobacco use type: Cigarette e-Cigarette/Vaping Use: Never Used Second Hand Smoke Exposure: Yes service: No Current occupational status: retired Cognitive needs: No Hearing needs: No Vision needs: Yes Questionnaire Thrive Questionnaire Date Thrive assessed: 10/02/24 I am a: Patient What is your living situation today?: I have a steady place to live Within the past 12 months, did the food you bought not last and you didn't have the money to get more?: Never true Within the past 12 months, did you worry whether your food would run out before you got money to buy more?: Never true Do you have trouble paying for medicines?: No Do you have trouble getting transportation to medical appointments?: No Do you have trouble paying your heating and electricity bill?: No Do you have trouble taking care of your child, family member or friend?: No Do you have trouble with day-to-day activities such as bathing, preparing meals, shopping, managing finances, etc.?: No Are you currently unemployed and looking for a job?: No Are you interested in more education?: No Please select the resources that you would like help with: None Currently or been in a relationship where the following occur: No concerns reported THRIVE Score: 0 JUSTUS-7 AMB Questionnaire JUSTUS-7 Date JUSTUS - 7 assessed: 08/20/24 Source: Developed by Drs. Bandar Banks, Mary Grace Cervantes, Gene Oakley and colleagues, with an educational italo from [employer]. Physical exam (Primary Care) Vital Signs: Last Vital Signs Temp 97.3 F 10/02/24 13:04 Pulse 101 H 10/02/24 13:04 BP 128/80 10/02/24 13:04 Pulse Ox 93 10/02/24 13:04 Oxygen Delivery Method Room Air 10/02/24 13:04 BMI result Body Mass Index 19.1 Tobacco/Smoking Status: Tobacco use Status Tobacco use date assessed 08/20/24 10/02/24 13:10 Patient Tobacco Use Status Former Tobacco user 10/02/24 13:10 Tobacco use type Cigarette 10/02/24 13:10 e-Cigarette/Vaping Use Never Used 10/02/24 13:10 Thrive Assessment: Date of Thrive Assessment Date Thrive assessed 10/02/24 10/02/24 13:10 Currently or been in a relationship where the following occur: No concerns reported Const Orientation/consciousness: patient oriented x3 Neuro General: patient oriented x3, gait normal and moves all extremities Extrem Left lower extremity: knee Details: tenderness and normal ROM; no crepitus Upper/lower leg/hip images: 2 1. Left Knee: Palpable cyst Psych Speech and movement: Normal speech and movement present Coding Level of Care Code Est Pt Level 4 (21853) Diagnoses Primary osteoarthritis of left knee M17.12 Laterality: left Osteoarthritis location: knee Osteoarthritis type: primary Synovial cyst of left knee M71.22 Laterality: left Time Spent (min) 20 Assessment & Plan Assessment & Plan (1) Osteoarthritis: Code(s): M19.90 - Unspecified osteoarthritis, unspecified site Category: Medical Qualifiers: Laterality: left Osteoarthritis location: knee Osteoarthritis type: p rimary Qualified Code(s): M17.12 - Unilateral primary osteoarthritis, left knee Plan: Stable. She wears Knee Brace (2) Layton's cyst of knee: Code(s): M71.20 - Synovial cyst of popliteal space [Layton], unspecified knee Category: Medical Qualifiers: Laterality: left Qualified Code(s): M71.22 - Synovial cyst of popliteal space [Layton], left knee Plan: Stable. Has an appointment with Orthopedics in October.
[2024-10-02 13:04] VITALS: BP 128/80; PULSE 101; TEMP 36.3; O2SAT 93; BMI 19.1
--- OUTSIDE RECORDS SUMMARY | 2024-10-02 13:32 | XMS_ITS | Patient Health Record ---
Author Organization [facility] Address [address] [place] [address] Care Team Providers Care Oil Lease Broker Name Role Phone Amalia [facility]ALL, [facility] Primary Care Provider Unavail able Bandar Rodriguez Unavailable [phone] Reason For Referral No Information Medications Medication SIG (Take, Route, Frequency, Duration) Notes Start Date End Date Status Latanoprost 0.005 % 1 drop into affected eye in the evening Ophthalmic Once a day Active Dorzolamide HCl-Timolol Mal Active Famotidine 1 daily Active Problems Problem Type SNOMED Code ICD Code Onset Dates Problem Status W/U Status Risk Notes Problem 672702136 Encounter for screening for malignant neoplasm of colon (Z12.11) Active confirmed Problem 610276984 History of adenomatous polyp of colon (Z86.010) Active confirmed Problem 465741781 Irritable bowel syndrome with diarrhea (K58.0) Active confirmed Problem Screening for malignant neoplasm of rectum (308516177) Encounter for screening for malignant neoplasm of rectum (Z12.12) Active confirmed Plan Of Treatment Future Test Test Name Order Date COLONOSCOPY 02/18/2015 Insurance Providers Payer Name Payer Address Payer Phone Subscriber Number Group Number Insured Name Patient Relationship to Insured Coverage Start Date Coverage End Date MEDICARE OF [place] [address] [place] [address] [phone] [id number] ANÍBAL EVANS Self - patient is the insured MEDEX ATTN CLAIMS [address] [place] [address] [phone] [id number] ANÍBAL EVANS Self - patient is the insured Medical (General) History Medical History History ICD Code glaucoma fibroids ovarian cysts Tubular adenomas removed in 1999 and 8/2 010 diverticulosis GERD--EGD in 11/2009--mod. sized HH-no Ba rrett's nor esophagitis chronic obstructive pulmonary disease (C OPD) Denies [place],DM,CVA,renal disease renal cysts negative gallbladder ultrasound in 2012 Surgical History Surgery Date(Month/Year) Appendectomy cataract surgery Ovarian cyst and uterine fibroid
== END 2024-10-02 13:53 | disposition home or self-care (01) ==
LOC: HO.HMCH 12:57
PROVIDERS: Visit Provider Nurse Practitioner Family
DX: M17.12 Unilateral primary osteoarthritis, left knee (principal); M71.22 Synovial cyst of popliteal space [Baker], left knee

== ENCOUNTER → 2024-10-02 12:56 | Outpatient (BNVA) | payer MEDICARE, SELFPAY | PROVIDERS: Visit Provider Nurse Practitioner Family | DX: M17.12 Unilateral primary osteoarthritis, left knee (principal); M71.22 Synovial cyst of popliteal space [Baker], left knee | CPT/HCPCS: 99212 ==

== ENCOUNTER 2024-10-15 14:50 | Outpatient (AMB) | payer MEDICARE, SELFPAY ==
[2024-10-15 14:52] VITALS: BMI 19.1
--- NOTE | 2024-10-15 14:52 | A.OFFVIS_ITS ---
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 She states that her discomfort has remained somewhat constant over the last year. She denies any locking or giving way. She continues to walk for exercise. Allergies cat dander Allergy (Mild, Verified 10/15/24 14:54) Unknown Medication List - Last Reconciled 10/15/24 by Carlos Cohen MD omeprazole 20 mg PO DAILY [facility] Medical History (Updated 10/15/24 @ 15:06 by Carlos Cohen MD) Layton's cyst of knee Chronic GERD Surgical History History of appendectomy Family History Father No problems noted. Mother No problems noted. Social History Housing: House Unable to assess alcohol history related to: Unknown Alcohol intake: current Alcohol intake frequency: a few times a week Patient Tobacco Use Status: Former Tobacco user Tobacco use type: Cigarette e-Cigarette/Vaping Use: Never Used Second Hand Smoke Exposure: Yes service: No Current occupational status: retired Cognitive needs: No Hearing needs: No Vision needs: Yes Physical Exam Vital Signs: BMI result Body Mass Index 19.1 Const Other: Well-nourished well-developed very friendly female awake alert and oriented x3 in no acute distress Extrem Other: Left knee examination shows a minimal effusion, mild crepitus with range of motion, a palpable cyst along the posterior aspect of her knee, no overlying skin lesions, negative Ladan's test Results Reviewed Results Reviewed: X-rays of the patient's left knee show moderate diffuse joint space narrowing, subchondral sclerosis, no acute bony abnormalities Assessment & Plan Assessment & Plan (1) Left knee pain: Code(s): M25.562 - Pain in left knee Category: Medical Plan Ms. Melara presents with intermittent left knee discomfort due to degenerative joint disease as well as a popliteal cyst. I had a lengthy discussion with the patient regarding the treatment options. At this point the patient's symptoms are tolerable to her. She will continue with her activity modifications. She will follow up with me on an as-needed basis should her symptoms worsen in any way. I spent 21 minutes in reviewing the patient's records and imaging studies, seeing the patient and documenting in the medical record. Coding Level of Care Code New Pt Level 3 (91449) Complex EM visit Add On G2211 Diagnoses Left knee pain M25.562
--- OUTSIDE RECORDS SUMMARY | 2024-10-15 14:53 | XMS_ITS | Patient Health Record ---
Author Organization [facility] Address [address] [place] [address] Care Team Providers Care Special Service Officer Name Role Phone Amalia HLAL, [facility] Primary Care Provider Unavail able Bandar Rodriguez Unavailable [phone] Reason For Referral No Information Medications Medication SIG (Take, Route, Frequency, Duration) Notes Start Date End Date Status Latanoprost 0.005 % 1 drop into affected eye in the evening Ophthalmic Once a day Active Dorzolamide HCl-Timolol Mal Active Famotidine 1 daily Active Problems Problem Type SNOMED Code ICD Code Onset Dates Problem Status W/U Status Risk Notes Problem 545007244 Encounter for screening for malignant neoplasm of colon (Z12.11) Active confirmed Problem 457488495 History of adenomatous polyp of colon (Z86.010) Active confirmed Problem 534010003 Irritable bowel syndrome with diarrhea (K58.0) Active confirmed Problem Screening for malignant neoplasm of rectum (366094167) Encounter for screening for malignant neoplasm of rectum (Z12.12) Active confirmed Plan Of Treatment Future Test Test Name Order Date COLONOSCOPY 02/18/2015 Insurance Providers Payer Name Payer Address Payer Phone Subscriber Number Group Number Insured Name Patient Relationship to Insured Coverage Start Date Coverage End Date MEDICARE OF [place] [address] [place] [address] [id number] ANÍBAL EVANS Self - patient is the insured MEDEX ATTN CLAIMS [address] [place] [address] [id number] ANÍBAL EVANS Self - patient is the insured Medical (General) History Medical History History ICD Code glaucoma fibroids ovarian cysts Tubular adenomas removed in 1999 and 8/2 010 diverticulosis GERD--EGD in 11/2009--mod. sized HH-no Ba rrett's nor esophagitis chronic obstructive pulmonary disease (C OPD) Denies [place],DM,CVA,renal disease renal cysts negative gallbladder ultrasound in 2012 Surgical History Surgery Date(Month/Year) Appendectomy cataract surgery Ovarian cyst and uterine fibroid
--- OUTSIDE RECORDS SUMMARY | 2024-10-15 14:53 | XMS_ITS | Clinical Summary ---
Author Organization [facility] Address [address] [place] [address] Care Team Providers Care Collar Stay Fuser Tender Name Role Phone Unavailable Primary Care Provider Unavailabl e Immunizations Immunization Administration Dates Next Due Influenza, [...] older (1 - 1-dose 75+ series) 2015 Influenza Vaccine (#1) 2024 4, 01/30/2023, 01/15/2022, Additional history exists Pneumococcal Vaccine: 50+ Years Completed 08/19/2018, 01/31/2018 COVID-19 Vaccine Completed 06/30/2024, , 02/06/2023, Additional [...] patient's age to complete this topic Meningococcal B Vaccine Aged Out No l onger eligible based on patient's age to complete this topic Meningococcal Vaccine Aged Out No eileen tim eligible based on patient's age to complete this topic RSV under 20 months Aged Out No longe r eligible based on patient's age to complete this topic Rotavirus Vaccines Aged Out No longer eligible based on patient's age to complete this topic Insurance MEDICARE Member Subscriber Plan / Payer ( fective 2005-Present) Name:Kamini Melara Member ID:[id number] Relation to Subscriber:Self Name:Kamini Melara Subscriber ID:[id number] Payer ID:[id number] Group ID:Not on file Type:Medicare Address: [facility], [facility] [address] [address] [facility] MEDEX CARE
== END 2024-10-15 15:04 | disposition home or self-care (01) ==
LOC: HO.HOS 14:51
PROVIDERS: Visit Provider Orthopaedic Surgery
DX: M25.562 Pain in left knee (principal)
CPT/HCPCS: 99203; G2211

== ENCOUNTER → 2024-10-15 14:50 | Outpatient (BNVA) | payer MEDICARE, SELFPAY | PROVIDERS: Visit Provider Orthopaedic Surgery | DX: M25.562 Pain in left knee (principal) | CPT/HCPCS: 99202 ==

== ENCOUNTER 2024-11-24 08:52 | Outpatient (AMB) | payer MEDICARE, SELFPAY ==
--- NOTE | 2024-11-24 08:57 | A.OFFPC_ITS ---
Vital Signs 11/24/24 09:06 Height 5 ft 4 in Weight 111 lb 4 oz BMI 19.1 BP 122/68 Blood Pressure Location Lt brachial Position Sitting Pulse 67 Pulse Source Pulse Oximeter Temp 97.4 F Pulse Oximetry (%) 96 Oxygen Delivery Method Room Air Intake Visit Reasons: 3 month Collar Starcher Required: No Accompanied by: Self / Same As Patient Allergies cat dander Allergy (Mild, Verified 11/24/24 08:59) Unknown Medication List - Last Reconciled 11/24/24 by Samantha Betts PA-C omeprazole 20 mg PO DAILY Tobacco use date assessed: 11/24/24 Fall risk assessment: No Falls in past year Last assessed Fall Risk: 11/24/24 Dental Screening Dental Screen Date: 11/24/24 Did you have a dental visit in the last 12 months?: Yes Did you have a dental problem in the last 6 months where you did not have access to dental care?: No Was dental information given to patient?: Patient has dentist HPI 3 month HPI Details 84-year-old female with past medical his tory of chronic GERD, cognitive declined and cholelithiasis last seen 09/2024 by nurse practitioner coming in for follow up. In review of the notes, patient was seen by Orthopedics 10/2024 continue with activity modification follow up as needed. Patient tells us today she is overall feeling generally well and has no acute concerns today. She is still concerned about her memory as she is often forgetful but denies any dangerous behaviors. [facility] Medical History Layton's cyst of knee Chronic GERD Surgical History History of appendectomy Family History Father No problems noted. Mother No problems noted. Social History Housing: House Unable to assess alcohol history related to: Unknown Alcohol intake: current Alcohol intake frequency: a few times a week Patient Tobacco Use Status: Former Tobacco user Tobacco use type: Cigarette e-Cigarette/Vaping Use: Never Used Second Hand Smoke Exposure: Yes service: No Current occupational status: retired Cognitive needs: No Hearing needs: No Vision needs: Yes Questionnaire Thrive Questionnaire Date Thrive assessed: 11/24/24 I am a: Patient What is your living situation today?: I have a steady place to live Within the past 12 months, did the food you bought not last and you didn't have the money to get more?: Never true Within the past 12 months, did you worry whether your food would run out before you got money to buy more?: Never true Do you have trouble paying for medicines?: No Do you have trouble getting transportation to medical appointments?: No Do you have trouble paying your heating and electricity bill?: No Do you have trouble taking care of your child, family member or friend?: No Do you have trouble with day-to-day activities such as bathing, preparing meals, shopping, managing finances, etc.?: No Are you currently unemployed and looking for a job?: No Are you interested in more education?: No Please select the resources that you would like help with: None Currently or been in a relationship where the following occur: No concerns reported THRIVE Score: 0 JUSTUS-7 AMB Questionnaire JUSTUS-7 Date JUSTUS - 7 assessed: 11/24/24 Source: Developed by Drs. Bandar Banks, Mary Grace Cervantes, Gene Oakley and colleagues, with an educational italo from [employer]. Review of Systems Const Denies body aches, Denies chills, Denies fever(s), Denies headache(s) and Denies poor appetite Eyes Reports no additional complaints ENT Denies dysphagia, Denies dizziness, Denies headache(s) and Denies odynophagia Card Denies chest pain, Denies syncope, Denies edema, Denies irregular heart rhythm, Denies lightheadedness and Denies dyspnea Resp Denies cough and Denies dyspnea GI Denies abdominal pain, Denies constipation, Denies dysphagia, Denies diarrhea, Denies nausea, Denies odynophagia and Denies vomiting Reports no additional complaints Musc Reports no additional complaints and Denies abnormal gait Skin/Breast Reports system reviewed and no additional complaints, except as documented Neuro Denies abnormal gait, Denies dizziness, Denies syncope and Denies headache(s) Psych Reports no additional complaints Physical exam (Primary Care) Vital Signs: Last Vital Signs Temp 97.4 F 11/24/24 09:06 Pulse 67 11/24/24 09:06 BP 122/68 11/24/24 09:06 Pulse Ox 96 11/24/24 09:06 Oxygen Delivery Method Room Air 11/24/24 09:06 BMI result Body Mass Index 19.1 Tobacco/Smoking Status: Tobacco use Status Tobacco use date assessed 11/24/24 11/24/24 09:07 Patient Tobacco Use Status Former Tobacco user 11/24/24 08:57 Tobacco use type Cigarette 11/24/24 08:57 e-Cigarette/Vaping Use Never Used 11/24/24 08:57 Thrive Assessment: Date of Thrive Assessment Date Thrive assessed 11/24/24 11/24/24 09:07 Currently or been in a relationship where the following occur: No concerns reported Const General: cooperative, healthy appearing, comfortable and no acute distress Orientation/consciousness: patient oriented x3 HENMT Head: Yes normocephalic Ears: hearing grossly normal bilaterally General nose exam: Normal external nose present Eyes General: appearance normal, both eyes and all related structures Conjunctivae: conjunctivae normal Neck Neck: Yes full ROM and Yes no lymphadenopathy Resp Effort & Inspection: normal respiratory effort Auscultation: clear to auscultation bilaterally, no crackles, no rales, no rhonchi and no wheezes Cardio Rate: regular rate Rhythm: regular rhythm Skin General skin exam: no rashes or lesions noted Neuro General: patient oriented x3 Gait exam (Neuro): Normal gait present Extrem General: Yes normal to inspection, Yes full ROM and No edema Psych Affect: normal affect Attitude: cooperative Insight: Good insight present (Psych) Judgement: Good judgement present (Psych) Coding Level of Care Code Est Pt Level 3 (38299) Diagnoses Chronic GERD K21.9 Cholelithiases K80.20 Abdominal pain R10.9 Synovial cyst of left knee M71.22 Laterality: left Cognitive decline R41.89 Assessment & Plan Assessment & Plan (1) Chronic GERD: Code(s): K21.9 - Gastro-esophageal reflux disease without esophagitis Category: Medical Plan: Avoid trigger foods such as citrus, tomato products, soda, caffeine, spicy foods and other foods that may be irritating to your stomach. Avoid laying flat 3-4 h ours after eating and elevate the head of the bed 30 degrees to prevent acid from moving into the esophagus. Continue on omeprazole. (2) Cholelithiases: Code(s): K80.20 - Calculus of gallbladder without cholecystitis without obstruction Category: Medical Plan: Patient is currently asymptomatic with cholelithiasis. Plan to continue to monitor at this time. Avoid eating fatty foods. (3) Abdominal pain: Code(s): R10.9 - Unspecified abdominal pain Category: Medical Plan: Resolved at this time. Continue to monitor (4) Layton's cyst of knee: Code(s): M71.20 - Synovial cyst of popliteal space [Layton], unspecified knee Category: Medical Qualifiers: Laterality: left Qualified Code(s): M71.22 - Synovial cyst of popliteal space [Layton], left knee Plan: Continue to follow with Dr. Newman as needed and continue with activity modsoctt saha. (5) Cognitive decline: Comment: MMSE 11/2024 26/30 Code(s): R41.89 - Other symptoms and signs involving cognitive functions and awareness Category: Medical Plan: MMSE performed today showing very mild impairment with a score of 26/30. She primarily had an issue with recalling the date and recalling the 3 given objects. I did offer referral to Neurology which was declined today. She agrees to reach out should her memory worsen and if she is looking for Neurology referral. Denies any dangerous behaviors such as wandering or leaving utilities on. Plan This note was constructed using voice recognition software. While every effort has been made to ensure accuracy and compressed gas equipment mechanic, still areas may have been included sometimes these areas may affect the content or meeting of the given symptoms. Total time spent caring for the patient today was 20 minutes. This includes time spent before the visit reviewing the chart, time spent during the visit, and time spent after the visit and documentation. Orders: Orders Lipid Panel Today E78.00 - Pure hypercholesterolemia, unspecified, Z13.220 - Encounter for screening for lipoid disorders Hemoglobin A1c Today E11.65 - Type 2 diabetes mellitus with hyperglycemia, Z13.1 - Encounter for screening for diabetes mellitus Comprehensive Met. Panel Today Z00.00 - Encounter for general adult medical examination without abnormal findings, Z13.1 - Encounter for screening for diabetes mellitus Complete Blood Count Auto Diff Today K21.9 - Gastro-esophageal reflux disease without esophagitis, Z00.00 - Encounter for general adult medical examination without abnormal findings TSH reflex Free T4 Today K21.9 - Gastro-esophageal reflux disease without esophagitis, Z13.29 - Encounter for screening for other suspected endocrine disorder Vitamin D 25-OH Total Today K21.9 - Gastro-esophageal reflux disease without esophagitis, Z13.21 - Encounter for screening for nutritional disorder Vitamin B12 and Folate Today K21.9 - Gastro-esophageal reflux disease without esophagitis, Z13.21 - Encounter for screening for nutritional disorder
[2024-11-24 09:06] VITALS: BP 122/68; PULSE 67; TEMP 36.3; O2SAT 96; BMI 19.1
--- OUTSIDE RECORDS SUMMARY | 2024-11-24 09:41 | XMS_ITS | Clinical Summary ---
Author Organization [facility] Address [address] [place] [address] Care Team Providers Care Stitcher Hand Name Role Phone Unavailable Primary Care Provider [...] Payer ( fective 2005-Present) Name:Kamini Melara Member ID:[id number] Relation to Subscriber:Self Name:Kamini Melara Subscriber ID:[id number] Payer ID:[id number] Group ID:Not on file Type:Medicare Address: [facility] [address] [address] [facility] MEDEX CARE
--- OUTSIDE RECORDS SUMMARY | 2024-11-24 09:41 | XMS_ITS | Patient Health Record ---
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 Role Phone [facility]alia [facility]ALL, [facility] Primary Care Provider Unavail able Bandar Rodriguez Unavailable [phone] Reason For Referral No Information Medications Medication SIG (Take, Route, Frequency, Duration) Notes Start Date End Date Status Latanoprost 0.005 % 1 drop into affected eye in the evening Ophthalmic Once a day Active Dorzolamide HCl-Timolol Mal Active Famotidine 1 daily Active Problems Problem Type SNOMED Code ICD Code Onset Dates Problem Status W/U Status Risk Notes Problem 690463882 Encounter for screening for malignant neoplasm of colon (Z12.11) Active confirmed Problem 488648075 History of adenomatous polyp of colon (Z86.010) Active confirmed Problem 681069046 Irritable bowel syndrome with diarrhea (K58.0) Active confirmed Problem Screening for malignant neoplasm of rectum (991754485) Encounter for screening for malignant neoplasm of rectum (Z12.12) Active confirmed Plan Of Treatment Future Test Test Name Order Date COLONOSCOPY 02/18/2015 Insurance Providers Payer Name Payer Address Payer Phone Subscriber Number Group Number Insured Name Patient Relationship to Insured Coverage Start Date Coverage End Date MEDICARE OF [place] [address] [place] [address] [id number] ANÍBAL EVANS Self - patient is the insured [employer] ATT[employer] CLAIMS [address] [place] [address] [id number] ANÍBAL EVANS Self - patient is the insured Medical (General) History Medical History History ICD Code glaucoma fibroids ovarian cysts Tubular adenomas removed in 1999 and 8/2 010 diverticulosis GERD--EGD in 11/2009--mod. sized HH-no Ba rrett's nor esophagitis chronic obstructive pulmonary disease (C OPD) Denies [place],DM,CVA,renal disease renal cysts negative gallbladder ultrasound in 2012 Surgical History Surgery Date(Month/Year) Appendectomy cataract surgery Ovarian cyst and uterine fibroid
== END 2024-11-24 09:37 | disposition home or self-care (01) ==
LOC: HO.HMCH 08:53
DX: K21.9 Gastro-esophageal reflux disease without esophagitis (principal); K80.20 Calculus of gallbladder without cholecystitis without obstruction; R10.9 Unspecified abdominal pain; M71.22 Synovial cyst of popliteal space [Baker], left knee; R41.89 Other symptoms and signs involving cognitive functions and awareness

== ENCOUNTER → 2024-11-24 08:52 | Outpatient (BNVA) | payer MEDICARE, SELFPAY | DX: K21.9 Gastro-esophageal reflux disease without esophagitis (principal); K80.20 Calculus of gallbladder without cholecystitis without obstruction; R10.9 Unspecified abdominal pain; M71.22 Synovial cyst of popliteal space [Baker], left knee; R41.89 Other symptoms and signs involving cognitive functions and awareness | CPT/HCPCS: 99212 ==

== ENCOUNTER 2024-11-27 08:06 | Outpatient (REF) | payer MEDICARE, SELFPAY ==
--- OUTSIDE RECORDS SUMMARY | 2024-11-27 08:11 | XMS_ITS | Patient Health Record ---
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 Role Phone Amalia [facility]ALL, [facility] Primary Care Provider Unavail able Bandar Rodriguez Unavailable [phone] Reason For Referral No Information Medications Medication SIG (Take, Route, Frequency, Duration) Notes Start Date End Date Status Latanoprost 0.005 % 1 drop into affected eye in the evening Ophthalmic Once a day Active Dorzolamide HCl-Timolol Mal Active Famotidine 1 daily Active Problems Problem Type SNOMED Code ICD Code Onset Dates Problem Status W/U Status Risk Notes Problem [id number] Encounter for screening for malignant neoplasm of colon (Z12.11) Active confirmed Problem 635848510 History of adenomatous polyp of colon (Z86.010) Active confirmed Problem 809787769 Irritable bowel syndrome with diarrhea (K58.0) Active confirmed Problem Screening for malignant neoplasm of rectum (984352237) Encounter for screening for malignant neoplasm of rectum (Z12.12) Active confirmed Plan Of Treatment Future Test Test Name Order Date COLONOSCOPY 02/18/2015 Insurance Providers Payer Name Payer Address Payer Phone Subscriber Number Group Number Insured Name Patient Relationship to Insured Coverage Start Date Coverage End Date MEDICARE OF [place] [address] [place] [address] [id number] ANÍBAL EVANS Self - patient is the insured MED[employer] ATT[employer] CLAIMS [address] [place] [address] [phone] [id number] ANÍBAL EVANS Self - patient is the insured Medical (General) History Medical History History ICD Code glaucoma fibroids ovarian cysts Tubular adenomas removed in 1999 and 8/2 010 diverticulosis GERD--EGD in 11/2009--mod. sized HH-no Ba rrett's nor esophagitis chronic obstructive pulmonary disease (C OPD) Denies [place],DM,CVA,renal disease renal cysts negative gallbladder ultrasound in 2012 Surgical History Surgery Date(Month/Year) Appendectomy cataract surgery Ovarian cyst and uterine fibroid
--- OUTSIDE RECORDS SUMMARY | 2024-11-27 08:11 | XMS_ITS | Clinical Summary ---
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
[2024-11-27 08:27] LABS: MANUAL DIFF FLAG NO
[2024-11-27 08:40] LABS: Hematocrit 43.4 % (37.0-47.0); Hemoglobin 14.3 g/dl (12.0-16.0); Imm Gran Abs Auto 0.02 X10*3/uL (0.00-0.03); Imm Gran Pct Auto 0.4 % (0.0-0.4); Lymphocytes Absolute Auto 1.6 X10*3/uL (1.2-4.9); Mean Corpuscular HGB Conc 32.9 g/dl (31.0-35.0); Mean Corpuscular Hemoglobin 31.2 pg (27.0-33.0); Mean Corpuscular Volume 94.8 fL (80.0-98.0); NRBC Abs Auto 0.000 X10*3/uL (0.0-0.012); NRBC Pct Auto 0.0 /100WBC (0.0-0.2); Platelet Count 277 X10*3/uL (160-400); Red Blood Count 4.58 X10*6/uL (4.20-5.50); White Blood Count 5.6 X10*3/uL (4.8-10.8)
[2024-11-27 09:16] LABS: Alanine Aminotransferase 16 U/L (0-31); Albumin Level 4.5 g/dL (3.5-5.0); Alkaline Phosphatase 79 U/L (39-117); Anion Gap 13 (12-20); Aspartate Amino Transferase 25 U/L (5-31); Blood Urea Nitrogen 12 mg/dL (9-16); Calcium 9.3 mg/dL (8.4-10.2); Carbon Dioxide 29 mmol/L (22-29); Chloride 105 mmol/L (96-108); Cholesterol 202 mg/dL (<200); Estimated Glomerular Filt Rate > 60; HDL Cholesterol 55 mg/dL (>40); Potassium 4.5 mmol/L (3.3-5.1); Sodium 142 mmol/L (135-145); Total Protein 7.4 g/dL (6.5-8.0); Triglycerides 90 mg/dL (<150)
[2024-11-27 09:26] LABS: Hemoglobin A1C 133.4709 umol/L; Total Hemoglobin (HGBA1C) 3726.3919 umol/L
[2024-11-27 09:47] LABS: Folate 11.7 ng/mL (> or = 4.0); Vitamin B12 364 pg/mL (200-900)
== END 2024-11-27 08:07 | disposition home or self-care (01) ==
LOC: HO.LAB 08:06
DX: Z00.00 Encounter for general adult medical examination without abnormal findings (principal); Z13.1 Encounter for screening for diabetes mellitus; Z13.29 Encounter for screening for other suspected endocrine disorder; Z13.220 Encounter for screening for lipoid disorders; K21.9 Gastro-esophageal reflux disease without esophagitis; Z13.21 Encounter for screening for nutritional disorder; E78.00 Pure hypercholesterolemia, unspecified; E11.65 Type 2 diabetes mellitus with hyperglycemia
CPT/HCPCS: 36415; 80053; 80061; 82306; 82607; 82746; 83036; 84443; 85025